=== PATIENT | female | born 1940 | race Caucasian/White ===

== ENCOUNTER 2016-03-09 19:41 | Inpatient (IN) | payer MEDICARE, MEDICAID ==
[~2016-03-09] VITALS: Ht 163 cm; Wt 52.8 kg
--- NOTE | ~2016-03-09 | CON ---
[place], [place] REPORT OF CONSULTATION NAME: CHESTER FARNSWORTH UNIT #: [id number] ROOM: 405 DOCTOR: SHRUTHI CALVIN MD BIRTHDATE: [birth year] DOS: 03/11/2016 [place], [place] REPORT OF CONSULTATION NAME: CHESTER FARNSWORTH UNIT #: [id number] ROOM: 405 DOCTOR: SHRUTHI CALVIN MD BIRTHDATE: [birth year] REQUESTING PHYSICIAN: Hospitalist services, Dr. Eliot Hanna. REASON FOR CONSULTATION: Assess the patient for COPD. HISTORY OF PRESENT ILLNESS: This is a 75-year-old white female who has been known to me with past history of COPD and other problem. The patient has been admitted to the hospital under care of Dr. Jacques Mccabe. She has been reported with symptoms of having increased coughing with shortness of breath, sent to the hospital from the snf. Chest x-ray was described to be abnormal. She has been currently treated for possibility of acute pneumonia with exacerbation of COPD. She denies symptoms of shortness of breath, coughing, chest pain, sputum expectoration or hemoptysis. The patient has been known with past history of dementia, unable to give me accurate history account. REVIEW OF SYSTEMS: Could not be completed since the patient was denying all symptoms and could not be relied upon. All the other history has been obtained from the previous known history for this patient in the past. PAST MEDICAL HISTORY: 1. History of chronic hypoxic respiratory failure. 2. History of partial complex seizures. 3. Mediastinal lymphadenopathy. 4. Previous history of pneumonia. 5. Atrial fibrillation, on anticoagulation. 6. History of chronic diarrhea. 7. History of dementia. 8. Raynaud's disease. SOCIAL HISTORY: The patient is , currently a resident of [facility], has 3 children. She does not have any history of alcohol or illicit drug use. Tobacco use noted since teenager up to 2 packs of cigarettes per day for many years that was discontinued about 5-6 years ago. There was no history of alcohol or illicit drug use. SURGICAL HISTORY: 1. ORIF of the right hip fracture for the patient in 2009. 2. Left carotid endarterectomy. DRUG ALLERGIES: The patient was no known drug allergies. MEDICATIONS: Current administered medications noted use of Lipitor, Dulera, potassium chloride, vitamin D, Lasix, metoprolol tartrate, diltiazem, IV Solu-Medrol, Protonix, DuoNeb, Rocephin intravenously, and IV Zithromax. PHYSICAL EXAMINATION: GENERAL: This is a 75-year-old white female noted comfortable sitting on the bed. Height of 5 feet 4 inches, weight 116 pounds, BMI 19.8. VITAL SIGNS: Shows normal temperature, respiratory recorded as 19-23, heart [place], [place] REPORT OF CONSULTATION NAME: CHESTER FARNSWORTH UNIT #: [id number] ROOM: 405 DOCTOR: SHRUTHI CALVIN MD BIRTHDATE: [birth year] rate of 93-60, blood pressure 116/48-113/57. Pulse oxygen saturation of the patient noted on 3 L nasal cannula 95% saturation. HEENT: Head is atraumatic. Eyes nonicterus. The neck was supple. Oral mucosa was moist. CARDIOVASCULAR: S1, S2 audible. LUNGS: Noted with moderate decreased breaths without any wheezing or crackles. ABDOMEN: Soft, flat, nontender. EXTREMITIES: Show no edema, clubbing, cyanosis. CENTRAL NERVOUS SYSTEM: Cranial nerves II-XII were noted intact. There were no focal deficits. MUSCULOSKELETAL: No deformities. SKIN: No lesions or rashes. LABORATORY DATA: CBC on 03/09/2016, patient was essentially noted as normal CBC. PT/INR on 03/09/2016 was 2.3, which is therapeutic. CMP of patient on 03/09/2016, BUN 26, creatinine 1.16, glucose 164, potassium 3.2. CK-MB, troponin of the patient which were done on 16 and 17 of this month were normal. CBC repeated again on yesterday was normal. PT/INR yesterday was noted to be 2.3 therapeutic as well. The BMP of the patient showed normal BUN and creatinine yesterday as well with the potassium level noted corrected as 4.0. The chest x-ray of the patient that was done on 03/09/2016, the patient does not show any acute abnormalities. The chest x-ray shows evidence of right upper lobe nodule as well. CT scan of the chest of the patient shows irregular spiculated nodule 1.6 x 1.4 x 1.4 cm in dimension. Another small nodule for the patient noted as 6 mm in the right upper lobe, a 5-mm nodule noted in the superior segment of the right lower lobe. A 5-mm additional nodule noted in the right upper lung as well. A 3-mm pleural based nodule noted in the right lower lobe as well. Basilar area of atelectasis was also noted with evidence of granuloma in the lungs. There was no significant lymphadenopathy was seen. IMPRESSION: 1. The patient who has been currently admitted to the hospital for acute exacerbation of COPD with history of chronic hypoxic respiratory failure. 2. Incidental findings, the patient was noted as spiculated nodule in the right upper lung, 1.6 cm in size and other smaller nodules in the right lung as well. The nodule in the right upper lung is noted highly suspicious possibility of primary lung malignancy and/or metastatic disease would be considered from any cancer in the body. 3. History of chronic dementia as well. 4. Granuloma for the patient was also noted in the lungs on the right side for the patient, which is a benign finding with small area of atelectasis in the left lower lobe. 5. History of chronic nicotine use for this patient was also noted with half a pack of cigarettes per day up to 2 packs of cigarettes per day rather for this patient until 5-6 years ago. PLAN OF TREATMENT: Agree with use of corticosteroids, bronchodilators, oxygen supplementation. Sputum for Gram stain and culture. Further workup for the patient for current suspected malignancy to be done as an outpatient upon discharge with a PET scan and/or biopsy for this patient of the pulmonary nodule [place], [place] REPORT OF CONSULTATION NAME: CHESTER FARNSWORTH UNIT #: [id number] ROOM: 405 DOCTOR[facility] [birth year] in the right upper lung, especially needs to be done. I also discussed the findings with the patient's family members and the patient. Continue the other previous treatment plan of management. Gradual reduction of steroids based on improvement of symptom. Usual care. Other supportive plan and management and other care. Thanks for allowing me to participate in care of this patient. SHRUTHI SHAHID MD CM:CONSTR:REPORT OF CONSULTATION 1041 04/15/16 0924 interface
[~2016-03-09 19:41] MED LIST: ADVAIR DISKUS 21 DSK INH; APAP PO; BREO ELLIPTA 11 EACH IH; CELEXA10 MG PO; COUMADIN0.5 MG PO; COUMADIN1 M1 PO; COUMADIN2 M1 PO; COUMADIN2 MG PO; COUMADIN3 M1 PO; D-1000 185 MG-11 TAB PO; DILTIAZEM 24HR120 MG PO; DILTIAZEM ER240 M1 PO; DOXYCYCLINE100 M3 PO; DUONEB 3 MG/3 ML3 M1 INH; DUONEB 3 MG/3 ML3 M1 NEB; HYDROCODON PO; IMODIUM A-D2 M2 PO; K-TAB10 MEQ PO; LASIX40 MG PO; LEVAQUIN750 M1 PO; LEVOFLOXACIN500 MG PO; LOPRESSOR50 M1 PO; METOPROLOL SUCC50 M1 PO; OXYGEN NAS; PREDNISONE10 MG PO; SYMBICORT1 AE1 INH; TYLENOL325 M1 PO; TYLENOL650 MG R; VALIUM10 MG PO; VICODIN 5-3001 EACH PO; VITAMIN D31000 IU PO; WARFARIN SODIUM1 MG PO; WARFARIN2 MG PO; ZOCOR40 MG PO
[2016-03-09 20:11] VITALS: BP 120/42
[2016-03-09 20:15] LABS: BASO % 0.2 % (0.0-1.0); EOS % 0.2 % (1.0-4.0); HEMATOCRIT 42.6 % (37.0-47.0); HEMOGLOBIN 13.4 g/dl (12.0-16.0); IG # 0.1 10*3/uL (0.0-0.1); LYMPH # 0.8 10*3/uL (1.3-4.4); LYMPH % 8.4 % (27.0-41.0); MEAN CELL VOLUME 89.9 fl (81.0-99.0); MEAN CORPUSCULAR HGB 28.3 pg (27.0-31.0); MEAN CORPUSCULAR HGB CONC 31.5 g/dl (33.0-37.0); MEAN PLATELET VOLUME 9.9 fl (9.6-12.3); MONO # 1.2 10*3/uL (0.1-1.0); MONO % 13.6 % (3.0-9.0); NEUT % 76.6 % (47.0-73.0); PLATELET COUNT AUTOMATED 270 10*3/uL (130-400); RED BLOOD COUNT 4.74 10*6/uL (4.10-5.10); RED CELL DISTRI WIDTH 15.9 % (0-14.5); WHITE BLOOD COUNT 9.1 10*3/uL (4.8-10.8)
[2016-03-09 20:30] VITALS: BP 115/50
[2016-03-09 20:31] LABS: INTERNATIONAL NORM RATIO 2.3 (2.0-3.5)
[2016-03-09 20:40] LABS: ALBUMIN 3.2 gm/dl (3.1-4.5); ALKALINE PHOSPHATASE 196 U/L (45-117); BILIRUBIN, TOTAL 0.2 mg/dl (0.2-1.0); BUN 26 mg/dl (7-24); C-REACTIVE PROTEIN 1.38 MG/DL (0-0.3); CARBON DIOXIDE 27 mmol/L (21-32); CHLORIDE 104 mmol/L (98-107); EST GLOM FILT AFRICAN AMERICAN 56 ml/min; GLUCOSE 164 mg/dL (65-99); POTASSIUM 3.2 mmol/L (3.5-5.1); SGOT/AST 31 IU/L (3-35); SGPT/ALT 40 U/L (12-78); SODIUM 143 mmol/L (136-145); TOTAL PROTEIN 7.4 gm/dL (6.4-8.2)
[2016-03-09 20:42] LABS: TROPONIN I < 0.015 ng/ml (<0.5)
[2016-03-09 21:07] VITALS: BP 115/49
[2016-03-09] MEDS ORDERED: COUMADIN2 M1 PO (21:29)
[2016-03-09] MEDS ORDERED: BREO ELLIPTA 11 EACH IH (21:31)
[2016-03-09] MEDS ORDERED: HYDROCODONE/ACE1 T14 PO (21:32)
[2016-03-09] MEDS ORDERED: CRESTOR20 M1 PO (21:33)
[2016-03-09] MEDS ORDERED: VITAMIN D31000 IU PO (21:33)
[2016-03-10 00:45] VITALS: BP 110/53
[2016-03-10 00:51] LABS: CKMB 1.4 ng/ml (0.5-3.6); CPK 66 U/L (26-192); TROPONIN I < 0.015 ng/ml (<0.5)
[2016-03-10 06:12] LABS: CKMB 1.4 ng/ml (0.5-3.6); CPK 58 U/L (26-192)
[2016-03-10 06:14] LABS: TROPONIN I < 0.015 ng/ml (<0.5)
[2016-03-10 06:20] LABS: BASO % 0.2 % (0.0-1.0); HEMATOCRIT 41.9 % (37.0-47.0); HEMOGLOBIN 13.2 g/dl (12.0-16.0); IG # 0.1 10*3/uL (0.0-0.1); LYMPH # 0.4 10*3/uL (1.3-4.4); LYMPH % 6.9 % (27.0-41.0); MEAN CELL VOLUME 89.9 fl (81.0-99.0); MEAN CORPUSCULAR HGB 28.3 pg (27.0-31.0); MEAN CORPUSCULAR HGB CONC 31.5 g/dl (33.0-37.0); MEAN PLATELET VOLUME 10.7 fl (9.6-12.3); MONO # 0.1 10*3/uL (0.1-1.0); MONO % 1.8 % (3.0-9.0); NEUT # 5.6 10*3/uL (2.3-7.9); PLATELET COUNT AUTOMATED 238 10*3/uL (130-400); RED BLOOD COUNT 4.66 10*6/uL (4.10-5.10); RED CELL DISTRI WIDTH 15.9 % (0-14.5); WHITE BLOOD COUNT 6.2 10*3/uL (4.8-10.8)
[2016-03-10 06:33] LABS: INTERNATIONAL NORM RATIO 2.3 (2.0-3.5); PROTHROMBIN TIME 25.4 SECONDS (9.0-12.4)
[2016-03-10 06:37] LABS: ALBUMIN 2.9 gm/dl (3.1-4.5); ALKALINE PHOSPHATASE 190 U/L (45-117); BILIRUBIN, TOTAL 0.1 mg/dl (0.2-1.0); BUN 20 mg/dl (7-24); CARBON DIOXIDE 28 mmol/L (21-32); CHLORIDE 109 mmol/L (98-107); EST GLOM FILT AFRICAN AMERICAN > 60 ml/min; FREE T4 0.91 ng/dl (0.76-1.46); GLUCOSE 165 mg/dL (65-99); MAGNESIUM 1.8 mg/dL (1.5-2.1); PHOSPHOROUS 3.4 mg/dL (2.5-4.9); SGOT/AST 37 IU/L (3-35); SGPT/ALT 39 U/L (12-78); SODIUM 143 mmol/L (136-145); THYROID STIM HORMONE (HS) 0.977 uIU/ml (0.358-4.75); TOTAL PROTEIN 6.8 gm/dL (6.4-8.2)
[2016-03-10 06:52] LABS: VITAMIN D, 25-HYDROXY 30.3 ng/mL (30-100)
[2016-03-10 06:53] LABS: FOLIC ACID 18.07 ng/mL (>5.38)
[2016-03-10 06:58] LABS: HEMOGLOBIN A1c 6.4 % (4.8-5.6)
[2016-03-10 08:00] VITALS: BP 112/51
[2016-03-10 12:00] VITALS: BP 103/88
[2016-03-10 12:24] LABS: CKMB 1.8 ng/ml (0.5-3.6); CPK 67 U/L (26-192); TROPONIN I < 0.015 ng/ml (<0.5)
[2016-03-10 16:00] VITALS: BP 109/53
[2016-03-10 20:00] VITALS: BP 104/51
[2016-03-11] VITALS: BP 113/57
[2016-03-11 06:39] LABS: BASO % 0.1 % (0.0-1.0); HEMATOCRIT 39.2 % (37.0-47.0); HEMOGLOBIN 12.2 g/dl (12.0-16.0); IG # 0.1 10*3/uL (0.0-0.1); LYMPH # 0.6 10*3/uL (1.3-4.4); LYMPH % 4.3 % (27.0-41.0); MEAN CELL VOLUME 91.6 fl (81.0-99.0); MEAN CORPUSCULAR HGB 28.5 pg (27.0-31.0); MEAN CORPUSCULAR HGB CONC 31.1 g/dl (33.0-37.0); MEAN PLATELET VOLUME 10.7 fl (9.6-12.3); MONO # 0.8 10*3/uL (0.1-1.0); MONO % 5.7 % (3.0-9.0); NEUT # 11.9 10*3/uL (2.3-7.9); NEUT % 89.3 % (47.0-73.0); PLATELET COUNT AUTOMATED 255 10*3/uL (130-400); RED BLOOD COUNT 4.28 10*6/uL (4.10-5.10); WHITE BLOOD COUNT 13.4 10*3/uL (4.8-10.8)
[2016-03-11 07:00] LABS: ALBUMIN 2.9 gm/dl (3.1-4.5); ALKALINE PHOSPHATASE 158 U/L (45-117); BILIRUBIN, TOTAL 0.2 mg/dl (0.2-1.0); BUN 22 mg/dl (7-24); CARBON DIOXIDE 26 mmol/L (21-32); CHLORIDE 109 mmol/L (98-107); EST GLOM FILT AFRICAN AMERICAN > 60 ml/min; GLUCOSE 180 mg/dL (65-99); POTASSIUM 3.4 mmol/L (3.5-5.1); SGOT/AST 20 IU/L (3-35); SGPT/ALT 29 U/L (12-78); SODIUM 146 mmol/L (136-145); TOTAL PROTEIN 6.7 gm/dL (6.4-8.2)
[2016-03-11 08:00] VITALS: BP 116/48
[2016-03-11 11:19] LABS: BILIRUBIN NEGATIVE (NEGATIVE); BLOOD TRACE-LYSED (NEGATIVE); COLOR YELLOW (YELLOW); GLUCOSE 3+ (NEGATIVE); KETONE NEGATIVE (NEGATIVE); LEUKO ESTERASE TRACE (NEGATIVE); NITRITE NEGATIVE (NEGATIVE); PH 5.5 (5.0-9.0); PROTEIN NEGATIVE (NEGATIVE); UROBILINOGEN 0.2 E.U./dl (0.2-1.0)
[2016-03-11 11:31] LABS: BACTERIA 1+; CLARITY SL CLOUDY (CLEAR); EPITHELIAL CELLS 0-2; URINE REFLEX COMMENT YES (NO); WBC 41-50 wbc/hpf (0-5)
[2016-03-11 11:59] VITALS: BP 125/56
[2016-03-11] MEDS ORDERED: PREDNISONE10 MG PO (15:16)
[2016-03-11] MEDS ORDERED: LEVAQUIN500 M2 PO (15:16)
[2016-03-11 16:00] VITALS: BP 139/70
== END 2016-03-11 17:31 | DRG 193 ==
LOC: ED 19:41 → 4E 21:18 → EDHOLD 21:18 → 4E 21:39
PROVIDERS: Emergency Medicine Emergency Medical Services; Family Medicine Adult Medicine; Internal Medicine
DX: J18.9 Pneumonia, unspecified organism (principal); N17.0 Acute kidney failure with tubular necrosis; J96.11 Chronic respiratory failure with hypoxia; E44.0 Moderate protein-calorie malnutrition; I13.0 Hypertensive heart and chronic kidney disease with heart failure and stage 1 through stage 4 chronic kidney disease, or unspecified chronic kidney disease; E87.0 Hyperosmolality and hypernatremia; I95.9 Hypotension, unspecified; I50.32 Chronic diastolic (congestive) heart failure; J44.0 Chronic obstructive pulmonary disease with (acute) lower respiratory infection; F33.9 Major depressive disorder, recurrent, unspecified; Z68.1 Body mass index [BMI] 19.9 or less, adult; J44.1 Chronic obstructive pulmonary disease with (acute) exacerbation; E87.6 Hypokalemia; R73.9 Hyperglycemia, unspecified; I73.9 Peripheral vascular disease, unspecified; J84.10 Pulmonary fibrosis, unspecified; G30.9 Alzheimer's disease, unspecified; I48.0 Paroxysmal atrial fibrillation; I25.10 Atherosclerotic heart disease of native coronary artery without angina pectoris; I73.00 Raynaud's syndrome without gangrene; N18.3 Chronic kidney disease, stage 3 (moderate); D72.829 Elevated white blood cell count, unspecified; Z79.01 Long term (current) use of anticoagulants; Z99.81 Dependence on supplemental oxygen; Z86.73 Personal history of transient ischemic attack (TIA), and cerebral infarction without residual deficits; Z98.890 Other specified postprocedural states; Z87.891 Personal history of nicotine dependence; Z80.1 Family history of malignant neoplasm of trachea, bronchus and lung; Z79.1 Long term (current) use of non-steroidal anti-inflammatories (NSAID); Z79.899 Other long term (current) drug therapy

== ENCOUNTER 2016-06-21 16:16 | Inpatient (IN) | payer MEDICARE, MEDICAID ==
[~2016-06-21] VITALS: Ht 157.4 cm; Wt 52.9 kg
--- NOTE | ~2016-06-21 | PR ---
[place], [place] PROGRESS NOTE NAME: CHESTER FARNSWORTH UNIT #: [id number] ROOM: 403 DOCTOR: SHRUTHI CALVIN MD BIRTHDATE: [birth year] DOS: 06/24/2016 PULMONARY FOLLOWUP NOTE SUBJECTIVE: The patient seen and examined on 06/24/2016. She has been noted comfortable, noted with confusion, has been known with history of dementia. Keep stating that why she is here and she need to go home. OBJECTIVE: VITAL SIGNS: For the patient, which has been recorded shows the temperature noted normal, respiratory rate of 18, heart rate 73, blood pressure 150/65. Pulse oxygen saturation on 2 liters nasal cannula 100% saturation recorded. HEENT: Examination shows no acute change. NECK: Supple. CARDIOVASCULAR SYSTEM: S1, S2 audible. LUNGS: The patient was noted without any wheezing or crackles. ABDOMEN: Soft, nontender. LABORATORY DATA: INR today noted 3.6, which is mildly above the therapeutic range. IMPRESSION: 1. The patient with right upper lung pulmonary nodule for the patient. 2. Acute exacerbation of chronic obstructive pulmonary disease as well. 3. Past history of nicotine dependence. 4. Resolving acute kidney injury. 5. Acute tracheobronchitis with exacerbation of chronic obstructive pulmonary disease as well as acute on chronic hypoxic respiratory failure. 6. History of chronic dementia. PLAN OF TREATMENT: Repeat another CT scan of the chest for assessment of the current nodule progression. In the meantime, continue the patient on current plan and management at this time without any changes. Usual care. Supportive therapy, plan of care and medical management. [place], [place] PROGRESS NOTE NAME: CHESTER FARNSWORTH UNIT #: [id number] ROOM: 403 DOCTOR: SHRUTHI CALVIN MD BIRTHDATE: [birth year] SHRUTHI SHAHID MD CM:PNTRANS 1225 [id number] SHRUTHI RODRIGUEZ MD 06/25/16 0302 interface
--- NOTE | ~2016-06-21 | CON ---
[place], [place] REPORT OF CONSULTATION NAME: CHESTER FARNSWORTH UNIT #: [id number] ROOM: 404 DOCTOR: KLEBER RODRIGUEZ MD,SHRUTHI BIRTHDATE: [birth year] DOS: 06/23/2016 PULMONARY CONSULTATION REASON FOR CONSULTATION: The patient had symptoms of shortness of breath. HISTORY OF PRESENT ILLNESS: This 75-year-old white female who has been known to me from the past as well. The patient presented to the Emergency and the patient has been noted significant shortness of breath. Recently she was noted with symptoms of having pain, which was described all over the body as well with shortness of breath. The shortness of breath has been noted usually with exertion and sometimes ____. She has been noted with symptoms of coughing, which were noted nonproductive as well. Denies symptoms of chest pain or any abdominal pain. The patient arrived to the Emergency Room, she was noted with oxygen saturation only 83% rathr in the Emergency Room and 71% was noted in the home setting. She was started on oxygen supplementation nasal cannula. She tried to complain of symptoms of wheezing at times as well. There were no symptoms of chest pain or hemoptysis. REVIEW OF SYSTEMS: CONSTITUTIONAL SYMPTOMS: Fatigue and tiredness were described without symptoms of fever or chills. EYES: Denies any burning, redness, or tenderness. EARS, NOSE, THROAT SYMPTOMS: No sore throat, hoarseness, otalgia, postnasal drainage. CARDIOVASCULAR: Denies anginal pain, edema of the lower extremities. GASTROINTESTINAL: Denies dysphagia, nausea, vomiting, diarrhea, abdominal pain, hematemesis, and melena. SKIN: No lesions or rashes. MUSCULOSKELETAL: No deformities. CENTRAL NERVOUS SYSTEM: Denies dizziness, headache or diplopia. The review of systems would be considered limited because the patient has history of known dementia and history may not be very accurate. PAST MEDICAL HISTORY: Noted: 1. Chronic hypoxic respiratory failure. 2. History of partial complex seizures. 3. Centrilobular emphysema. 4. Pneumonia. 5. Atrial fibrillation with anticoagulation. 6. Chronic intermittent diarrhea. 7. Raynaud's disease. SOCIAL HISTORY: The patient is . She is a resident of ____ history in the past. There was no history of alcohol use or illicit drug use was known. Tobacco use noted since teenager, 2 packs of cigarettes per day for several years, which were discontinued approximately 5-6 years ago. There was no history of tobacco use or any alcohol use. PAST SURGICAL HISTORY: [place], [place] REPORT OF CONSULTATION NAME: CHESTER FARNSWORTH UNIT #: [id number] ROOM: 404 DOCTOR: KLEBER RODRIGUEZ MD,SHRUTHI BIRTHDATE: [birth year] 1. ORIF for this patient. 2. Left carotid endarterectomy. FAMILY HISTORY: The patient was unknown. MEDICATIONS: The current administered medication noted use of Coumadin, vitamin D, Cardizem, loratadine, metoprolol tartrate, Solu-Medrol 40 mg IV b.i.d., Dulera, Lipitor, DuoNeb, Levaquin, and other p.r.n. medications. DRUG ALLERGIES: The patient was noted as no known drug allergies. PHYSICAL EXAMINATION: GENERAL: This is a 75-year-old white female currently noted sitting comfortably for the patient resting on her bed. VITAL SIGNS: The height for the patient recorded with height of 5 feet 2 inches, weight of 121 pounds, BMI of 20.7. The vital signs show a normal temperature, respiratory rate 18-20, heart rate of 77-68, and blood pressure 142/62-135/65. Intake for the patient is 3000 mL, output were not documented. Pulse oxygen saturation on Venturi mask was 99%, currently on 3 L nasal cannula 97% saturation recorded. HEENT: Head was atraumatic. Eyes nonicterus. NECK: Supple. CARDIOVASCULAR: S1, S2 audible. LUNGS: The patient was noted without any crackles. Expiratory wheezing noted in the lungs bilaterally. ABDOMEN: Flat, soft, nontender. EXTREMITIES: No edema, clubbing, cyanosis. CENTRAL NERVOUS SYSTEM: Cranial nerves 2-12 intact. No focal deficit. MUSCULOSKELETAL: No deformities. SKIN: Showed no lesions or rashes. LABORATORY DATA: Arterial blood gas on 4 liters, pH is 7.40, pCO2 of 44, pO2 of 45.3 on admission on 06/21/2016. ____ 430, BUN 38, creatinine 1.54. Glucose 115. Remaining electrolytes were normal. CBC on 06/21/2016 on admission, WBC count 17.8, hemoglobin, hematocrit and platelet count was normal. The CMP for the patient that was done for this patient on 06/22/2016, BUN 26, creatinine was normal, glucose 169. CBC of the patient on 06/22/2016 noted as essentially normal CBC except differential 90% segmented neutrophils were noted. One view chest x-ray that was done on admission was noted as; chest x-ray does not show any evidence of pulmonary infiltration. The nodular density at the right upper lung persisted, which was also seen on the previous CT scan of the chest in February of 2016 at that time. IMPRESSION: 1. The patient who has been currently admitted to the hospital noted with acute on chronic hypoxic respiratory failure as a result of acute exacerbation of chronic obstructive pulmonary disease and acute tracheobronchitis. 2. Acute kidney injury for the patient noted most likely intravascular volume depletion for this patient volume contraction has resolved after the IV hydration from admission as well. [place], [place] REPORT OF CONSULTATION NAME: CHESTER FARNSWORTH UNIT #: [id number] ROOM: [facility] DOCTOR: KLEBER RODRIGUEZ MDSHRUTHI BIRTHDATE: [birth year] 3. Past history of nicotine use. 4. Right upper lung nodule concerning for possibility of malignancy. The CT scan of the 02/2016 was noted again. At that time during hospitalization. I have seen the patient in consultation. The findings were discussed with the patient family members. The patient further workup to be conducted including a PET scan, CT-guided needle aspiration biopsy for ruling out malignancy. However, the patient has never been seen in my office and I am not sure any further assessment was done by another physician at that time. PLAN OF TREATMENT: Continue IV Solu-Medrol, bronchodilators, antibiotics, and other treatment including anticoagulation. Monitor PT/INR while the patient is on anticoagulation with Coumadin. The last INR for patient on 06/22/2016 was noted 2.6, which is therapeutic. Enquired about the previous workup conducted were not done for the right upper lung pulmonary nodule. The workup is not complete. The family will be wishing an interesting further workup. The patient certainly does need to establish appointment office as previously recommended to complete that workup. ____ of malignancy cannot be completely excluded. In the meantime, continue other supportive therapy, plan and management, progress as well. Further changes in the plan of treatment will be done based on progression of the illness. SHRUTHI SHAHID MD CM:CONSTR:REPORT OF CONSULTATION 1231 06/24/16 0754 interface
[~2016-06-21 16:16] MED LIST changes: +CRESTOR20 M1 PO; +HYDROCODONE/ACE1 T14 PO; +LEVAQUIN500 M2 PO
[2016-06-21 16:31] VITALS: BP 124/68
[2016-06-21 16:36] LABS: ABG BASE EXCESS 2.5 mmol/L (-2.0-2.0); ABG CO2 CONTENT 28.6 mmol/L (23-27); ABG HCO3 27.3 mmol/l (22-26); ABG TEMPERATURE 98.1 F (98.0-99.0); ARTERIAL BLOOD GAS PH 7.407 (7.35-7.45); ARTERIAL BLOOD GAS PO2 45.3 mmHg (80-90)
[2016-06-21 16:48] LABS: HEMATOCRIT 46.3 % (37.0-47.0); HEMOGLOBIN 14.4 g/dl (12.0-16.0); MEAN CELL VOLUME 94.7 fl (81.0-99.0); MEAN CORPUSCULAR HGB 29.4 pg (27.0-31.0); MEAN CORPUSCULAR HGB CONC 31.1 g/dl (33.0-37.0); MEAN PLATELET VOLUME 10.4 fl (9.6-12.3); PLATELET COUNT AUTOMATED 323 10*3/uL (130-400); RED BLOOD COUNT 4.89 10*6/uL (4.10-5.10); RED CELL DISTRI WIDTH 14.4 % (0-14.5); WHITE BLOOD COUNT 17.2 10*3/uL (4.8-10.8)
[2016-06-21] MEDS ORDERED: CLARITIN10 MG PO (16:48)
[2016-06-21] MEDS ORDERED: BREO ELLIPTA 11 EACH IH (16:48)
[2016-06-21] MEDS ORDERED: COUMADIN1 M1 PO (16:49)
[2016-06-21] MEDS ORDERED: COUMADIN2 MG PO (16:50)
[2016-06-21] MEDS ORDERED: LASIX40 MG PO (16:51)
[2016-06-21] MEDS ORDERED: K-TAB10 MEQ PO (16:51)
[2016-06-21] MEDS ORDERED: DILTIAZEM ER120 MG PO (16:51)
[2016-06-21] MEDS ORDERED: HYDROCODONE BIT1 T11 PO (16:52)
[2016-06-21] MEDS ORDERED: VITAMIN D31000 IU PO (16:52)
[2016-06-21] MEDS ORDERED: CRESTOR20 M1 PO (16:52)
[2016-06-21] MEDS ORDERED: LOPRESSOR50 M1 PO (16:53)
[2016-06-21] MEDS ORDERED: DUONEB 3 MG/3 ML3 M1 INH (16:53)
[2016-06-21] MEDS ORDERED: TYLENOL325 M1 PO (16:54)
[2016-06-21 17:00] LABS: POTASSIUM 3.9 mmol/L (3.5-5.1)
[2016-06-21 17:13] LABS: BASOPHIL # 0.2 10*3/uL (0-0.1); BASOPHILS 1 % (0-1); LYMPHOCYTE # 1.7 10*3/uL (1.3-4.4); NEUTROPHIL # 14.3 10*3/uL (2.3-7.9); NEUTROPHILS 83 % (47-73); TOTAL CELLS COUNTED 100 #CELLS
[2016-06-21 17:14] LABS: PLATELET SUFFICIENCY NORMAL (NORMAL)
[2016-06-21 17:55] VITALS: BP 101/67
[2016-06-21 20:00] VITALS: BP 144/59
[2016-06-22] VITALS: BP 118/50
[2016-06-22 06:34] LABS: HEMATOCRIT 44.4 % (37.0-47.0); HEMOGLOBIN 13.8 g/dl (12.0-16.0); MEAN CELL VOLUME 94.9 fl (81.0-99.0); MEAN CORPUSCULAR HGB 29.5 pg (27.0-31.0); MEAN CORPUSCULAR HGB CONC 31.1 g/dl (33.0-37.0); MEAN PLATELET VOLUME 10.6 fl (9.6-12.3); PLATELET COUNT AUTOMATED 277 10*3/uL (130-400); RED BLOOD COUNT 4.68 10*6/uL (4.10-5.10); RED CELL DISTRI WIDTH 14.3 % (0-14.5)
[2016-06-22 06:53] LABS: ALBUMIN 3.1 gm/dl (3.1-4.5); ALKALINE PHOSPHATASE 185 U/L (45-117); BILIRUBIN, TOTAL 0.3 mg/dl (0.2-1.0); CARBON DIOXIDE 30 mmol/L (21-32); CHLORIDE 107 mmol/L (98-107); CHOLESTEROL 134 mg/dL (<200); EST GLOM FILT AFRICAN AMERICAN > 60 ml/min; GLUCOSE 169 mg/dL (65-99); HDL CHOLESTEROL 65 mg/dl (40-60); LDL CHOLESTEROL 45 mg/dL (9-159); MAGNESIUM 1.8 mg/dL (1.5-2.1); POTASSIUM 3.8 mmol/L (3.5-5.1); SGOT/AST 21 IU/L (3-35); SGPT/ALT 33 U/L (12-78); SODIUM 144 mmol/L (136-145); TOTAL PROTEIN 7.2 gm/dL (6.4-8.2); TRIGLYCERIDES 121 mg/dl (<150); VLDL CHOLESTEROL 24 mg/dL (6-40)
[2016-06-22 06:57] LABS: INTERNATIONAL NORM RATIO 2.6 (2.0-3.5); PROTHROMBIN TIME 28.9 SECONDS (9.0-12.4)
[2016-06-22 06:59] LABS: BUN 26 mg/dl (7-24); FREE T4 0.65 ng/dl (0.76-1.46)
[2016-06-22 07:09] LABS: LYMPHOCYTE # 0.7 10*3/uL (1.3-4.4); METAMYELOCYTES 1 % (0-0); MONOCYTE # 0.2 10*3/uL (0.1-1.0); NEUTROPHILS 90 % (47-73); TOTAL CELLS COUNTED 100 #CELLS
[2016-06-22 07:10] LABS: PLATELET SUFFICIENCY NORMAL (NORMAL)
[2016-06-22 08:00] VITALS: BP 139/74
[2016-06-22 10:38] LABS: FOLIC ACID 9.67 ng/mL (>5.38); VITAMIN D, 25-HYDROXY 25.1 ng/mL (30-100)
[2016-06-22 12:00] VITALS: BP 141/64
[2016-06-22 16:00] VITALS: BP 136/68
[2016-06-22 20:00] VITALS: BP 135/65
[2016-06-23] VITALS: BP 120/71
[2016-06-23 08:00] VITALS: BP 143/62
[2016-06-23 12:00] VITALS: BP 138/72
[2016-06-23 16:00] VITALS: BP 155/68
[2016-06-23 20:03] VITALS: BP 105/67
[2016-06-24] VITALS: BP 104/64
[2016-06-24 05:50] LABS: INTERNATIONAL NORM RATIO 3.6 (2.0-3.5); PROTHROMBIN TIME 40.8 SECONDS (9.0-12.4)
[2016-06-24 08:00] VITALS: BP 158/65
[2016-06-24] MEDS ORDERED: D-1000 185 MG-11 TAB PO (11:20)
[2016-06-24 12:00] VITALS: BP 164/83
[2016-06-24 16:00] VITALS: BP 128/68
== END 2016-06-24 17:42 | disposition home or self-care (01) | DRG 682 ==
LOC: ED 16:16 → EDHOLD 17:21 → 4E 17:21
PROVIDERS: Emergency Medicine; Internal Medicine; Internal Medicine Hospice and Palliative Medicine
DX: N17.9 Acute kidney failure, unspecified (principal); J96.21 Acute and chronic respiratory failure with hypoxia; F03.90 Unspecified dementia, unspecified severity, without behavioral disturbance, psychotic disturbance, mood disturbance, and anxiety; I13.0 Hypertensive heart and chronic kidney disease with heart failure and stage 1 through stage 4 chronic kidney disease, or unspecified chronic kidney disease; J44.0 Chronic obstructive pulmonary disease with (acute) lower respiratory infection; J44.1 Chronic obstructive pulmonary disease with (acute) exacerbation; I50.9 Heart failure, unspecified; I48.91 Unspecified atrial fibrillation; I73.9 Peripheral vascular disease, unspecified; N18.3 Chronic kidney disease, stage 3 (moderate); R91.1 Solitary pulmonary nodule; D64.9 Anemia, unspecified; R91.8 Other nonspecific abnormal finding of lung field; I25.10 Atherosclerotic heart disease of native coronary artery without angina pectoris; Z99.81 Dependence on supplemental oxygen; Z87.891 Personal history of nicotine dependence; Z86.73 Personal history of transient ischemic attack (TIA), and cerebral infarction without residual deficits; Z80.1 Family history of malignant neoplasm of trachea, bronchus and lung; Z82.49 Family history of ischemic heart disease and other diseases of the circulatory system

== ENCOUNTER 2016-06-27 12:43 | Inpatient (IN) | payer MEDICARE, MEDICAID ==
[~2016-06-27] VITALS: Ht 162.6 cm; Wt 50.9 kg
--- NOTE | ~2016-06-27 | PR ---
[place], [place] PROGRESS NOTE NAME: CHESTER FARNSWORTH UNIT #: [id number] ROOM: 427 DOCTOR: KLEBER RODRIGUEZ MD,SHRUTHI BIRTHDATE: [birth year] DOS: 06/28/2016 PULMONARY PROGRESS NOTE SUBJECTIVE: She has been comfortably resting on the bed, has been noted with dementia, does not complain of any acute symptoms. She has not been noted with excessive coughing at the time of the assessment. OBJECTIVE: VITAL SIGNS: Normal temperature, respiratory rate 20, heart rate 81, blood pressure 152/80. HEENT: Examination shows head was atraumatic. Eyes nonicterus. NECK: Supple. CARDIOVASCULAR SYSTEM: S1, S2 is audible. LUNGS: The patient was noted without any wheezing or crackles at the present time. ABDOMEN: Soft, nontender. IMPRESSION: 1. Resolving acute exacerbation of chronic obstructive pulmonary disease and acute tracheobronchitis with current plan of treatment. 2. Right upper lung pulmonary nodule. The patient is suspected slow growing malignancy for the patient required further outpatient assessment. PLAN OF TREATMENT: No changes in the plan of management at this time. Continue corticosteroids and bronchodilators treatment plan of therapy. Usual care. SHRUTHI SHAHID MD CM:PNTRANS 1313 19 SHRUTHI RODRIGUEZ MD 06/28/16 222 interface
--- NOTE | ~2016-06-27 | CON ---
[place], [place] REPORT OF CONSULTATION NAME: CHESTER FARNSWORTH UNIT #: [id number] ROOM: 427 DOCTOR: KLEBER RODRIGUEZ MD,SHRUTHI BIRTHDATE: [birth year] DOS: 06/27/2016 PULMONARY CONSULTATION EVALUATION AND MANAGEMENT REASON FOR CONSULTATION: For assessment of abnormal respiratory symptoms, possibly due to pneumonia with exacerbation of COPD. HISTORY OF PRESENT ILLNESS: A 75-year-old white female known to me very well with the previous hospitalization, the patient was discharged home for the patient after medical management of acute exacerbation of COPD, acute tracheobronchitis of the patient on 06/24/2016. The patient has been noted much better without any significant wheezing, coughing. The patient was sent back to the emergency room for the patient from the nursing facility of the patient. The patient has been noted with generalized weakness and fatigue with the coughing with increased dyspnea. The patient denies any symptoms of chest pain. Denies symptoms of hemoptysis. The patient has been noted with history of chronic dementia, unable to give me any history. All the history has been obtained from past review of the medical records. She was also described as oxygen saturation of 88% to 90% on 3 liters cannula with the usual oxygen use. The patient was given DuoNeb for the patient one treatment by the EMS for this patient prior to arrival to the hospital. REVIEW OF SYSTEMS: Cannot be completed because of the patient's history of dementia. PAST MEDICAL HISTORY, SOCIAL HISTORY, SURGICAL HISTORY, FAMILY HISTORY: For this patient was reviewed for the patient remains unchanged with my recent assessment for this patient, which was done for this patient on 06/23/2016. CURRENT MEDICATIONS: Administered for the patient were noted as use of vitamin D, Lipitor, Cardizem-CD, loratadine, metoprolol tartrate, Mucinex 1200 mg b.i.d., Solu-Medrol 60 mg IV b.i.d., potassium chloride 10 mEq t.i.d., Coumadin 2 mg daily, DuoNeb every 4 hours, IV Zithromax, Rocephin and other p.r.n. medication administration. DRUG ALLERGY HISTORY: Reported no known drug allergies. PHYSICAL EXAMINATION: GENERAL: A 75-year-old female who has been currently resting, sitting on the chair. Height of 5 feet 4 inches of the patient, weight of 105 pounds, BMI 18 was recorded. VITAL SIGNS: Shows temperature noted as 97 degree Fahrenheit. The respiratory rate of the patient recorded as 17-24, heart rate 91-82, blood pressure 116/70 to 115/89. The pulse oxygen saturation for the patient recorded in the hospital for the patient 3 liters nasal canula 90% to 96% saturation. HEENT: Examination for the patient was noted with head was atraumatic. Eyes nonicterus. NECK: Supple. CARDIOVASCULAR: S1, S2 is audible. LUNGS: The patient was noted with generalized reduction in the breath sounds [place], [place] REPORT OF CONSULTATION NAME: CHESTER FARNSWORTH UNIT #: [id number] ROOM: 427 DOCTOR: KLEBER RODRIGUEZ MD,[facility] BIRTHDATE: [birth year] with mild expiratory wheezing at this time. ABDOMEN: Soft, nontender. EXTREMITIES: Shows no edema, clubbing, cyanosis. CENTRAL NERVOUS SYSTEM: No gross focal deficit. The patient unable to follow for the vocal command for detailed assessment of central nervous system. MUSCULOSKELETAL: No deformity. SKIN: No lesions or rashes noted. LABORATORY DATA: The patient's CBC on 06/27/2016, the patient's WBC count 22.1, remaining CBC was normal. CMP of the patient of 06/27/2016, the patient's BUN 26, creatinine was normal, glucose 142, potassium 2.9, sodium 146. Lactic acid was 1.8 this morning as well. The chest x-ray of the patient, which was done, 1 view for this patient during this hospitalization was noted without any acute pulmonary infiltration. Right upper lung pulmonary nodule was seen. IMPRESSION: 1. The patient has been noted with current leukocytosis, most likely effect of current acute infection effect with corticosteroids and other reasons, admitted to the hospital with recurrent exacerbation of COPD as well as acute on chronic hypoxic respiratory failure because of worsening of the hypoxia after recent discharge from the hospital. 2. Acute tracheobronchitis was also noted. 3. Chronic dementia. 4. Right upper lung progressive lesion with suspicion of malignancy for the patient. The patient does have an appointment in my office of 07/01/2016, to assess for that reason. 5. Hypokalemia. PLAN OF TREATMENT: Agree with use of corticosteroids, current antibiotics and aggressive use of bronchodilators. The INR were noted subtherapeutic, which has been currently managed for this patient to maintain the therapeutic INR. In the meantime, continue the patient on current other therapy, plan and management, usual care and therapies. Supportive care. Other usual medical management and plan of care. Thanks for allowing me to participate in the care of this patient. SHRUTHI SHAHID MD CM:CONSTR:REPORT OF CONSULTATION 05 06/28/16 1207 interface
--- NOTE | ~2016-06-27 | PR ---
[place], [place] PROGRESS NOTE NAME: CHESTER FARNSWORTH UNIT #: [id number] ROOM: 427 DOCTOR: KLEBER RODRIGUEZ MD,SHRUTHI BIRTHDATE: [birth year] DOS: 06/29/2016 SUBJECTIVE: She has been noted reduction of respiratory symptom. There were no symptoms of chest pain. The patient was continued on antibiotics and bronchodilators. She has been noted chronic dementia. OBJECTIVE: VITAL SIGNS: For the patient, which have been recorded showed normal temperature, respiratory rate 20, heart rate 72, blood pressure 142/70. HEENT: Showed no new change. NECK: Supple. CARDIOVASCULAR: S1, S2 audible. LUNGS: Without any wheeze or crackles at the present time. ABDOMEN: Soft, nontender. IMPRESSION: 1. Stable respiratory status noted at the present time with resolving exacerbation of chronic obstructive pulmonary disease. 2. History of right upper lung pulmonary nodule. PLAN OF TREATMENT: No changes in the plan of management at this time, possible consideration for discharge to the nursing facility with corticosteroids for extended period. The antibiotic would be recommended. Other treatment and plan of management as previously. SHRUTHI SHAHID MD CM:PNTRANS 1030 SHRUTHI RODRIGUEZ MD 06/29/162149 interface
[~2016-06-27 12:43] MED LIST changes: +CLARITIN10 MG PO; +DILTIAZEM ER120 MG PO; +HYDROCODONE BIT1 T11 PO
[2016-06-27 12:53] VITALS: BP 111/68
[2016-06-27 13:16] LABS: HEMATOCRIT 46.4 % (37.0-47.0); MEAN CORPUSCULAR HGB 29.4 pg (27.0-31.0); MEAN CORPUSCULAR HGB CONC 32.3 g/dl (33.0-37.0); MEAN PLATELET VOLUME 10.3 fl (9.6-12.3); PLATELET COUNT AUTOMATED 399 10*3/uL (130-400); RED CELL DISTRI WIDTH 14.2 % (0-14.5); WHITE BLOOD COUNT 22.1 10*3/uL (4.8-10.8)
[2016-06-27 13:23] LABS: INTERNATIONAL NORM RATIO 1.7 (2.0-3.5); PROTHROMBIN TIME 18.4 SECONDS (9.0-12.4)
[2016-06-27 13:33] LABS: ALBUMIN 3.3 gm/dl (3.1-4.5); ALKALINE PHOSPHATASE 147 U/L (45-117); BILIRUBIN, TOTAL 0.4 mg/dl (0.2-1.0); BUN 26 mg/dl (7-24); CARBON DIOXIDE 35 mmol/L (21-32); CHLORIDE 100 mmol/L (98-107); EST GLOM FILT AFRICAN AMERICAN > 60 ml/min; GLUCOSE 142 mg/dL (65-99); POTASSIUM 2.9 mmol/L (3.5-5.1); SGOT/AST 19 IU/L (3-35); SGPT/ALT 24 U/L (12-78); SODIUM 146 mmol/L (136-145); TOTAL PROTEIN 7.4 gm/dL (6.4-8.2)
[2016-06-27 13:34] LABS: ATYPICAL LYMPHS 1 % (0-0); EOSINOPHIL # 0.4 10*3/uL (0-0.4); EOSINOPHILS 2 % (1-4); LYMPHOCYTE # 1.1 10*3/uL (1.3-4.4); MONOCYTE # 1.3 10*3/uL (0.1-1.0); NEUTROPHIL # 19.2 10*3/uL (2.3-7.9); NEUTROPHILS 87 % (47-73); TOTAL CELLS COUNTED 100 #CELLS; TROPONIN I 0.021 ng/ml (<0.045)
[2016-06-27 13:35] LABS: PLATELET SUFFICIENCY NORMAL (NORMAL)
[2016-06-27 13:47] LABS: BILIRUBIN NEGATIVE (NEGATIVE); BLOOD 1+ (NEGATIVE); CLARITY CLEAR (CLEAR); COLOR YELLOW (YELLOW); GLUCOSE 1+ (NEGATIVE); KETONE NEGATIVE (NEGATIVE); LEUKO ESTERASE 1+ (NEGATIVE); NITRITE NEGATIVE (NEGATIVE); PROTEIN TRACE (NEGATIVE); UROBILINOGEN 0.2 E.U./dl (0.2-1.0)
[2016-06-27 13:58] LABS: BACTERIA 1+; URINE REFLEX COMMENT YES (NO)
[2016-06-27 14:15] VITALS: BP 119/70
[2016-06-27 14:40] VITALS: BP 116/70
[2016-06-27 16:00] VITALS: BP 115/89
[2016-06-27 20:00] VITALS: BP 112/59
[2016-06-27 21:28] VITALS: BP 126/80
[2016-06-28] VITALS: BP 104/54
[2016-06-28 06:31] LABS: HEMATOCRIT 42.8 % (37.0-47.0); HEMOGLOBIN 13.6 g/dl (12.0-16.0); MEAN CELL VOLUME 93.4 fl (81.0-99.0); MEAN CORPUSCULAR HGB 29.7 pg (27.0-31.0); MEAN CORPUSCULAR HGB CONC 31.8 g/dl (33.0-37.0); MEAN PLATELET VOLUME 10.3 fl (9.6-12.3); PLATELET COUNT AUTOMATED 361 10*3/uL (130-400); RED BLOOD COUNT 4.58 10*6/uL (4.10-5.10); RED CELL DISTRI WIDTH 14.2 % (0-14.5); WHITE BLOOD COUNT 14.1 10*3/uL (4.8-10.8)
[2016-06-28 06:51] LABS: ALBUMIN 2.7 gm/dl (3.1-4.5); ALKALINE PHOSPHATASE 129 U/L (45-117); BILIRUBIN, TOTAL 0.3 mg/dl (0.2-1.0); BUN 25 mg/dl (7-24); CARBON DIOXIDE 32 mmol/L (21-32); CHLORIDE 105 mmol/L (98-107); EST GLOM FILT AFRICAN AMERICAN > 60 ml/min; GLUCOSE 208 mg/dL (65-99); PHOSPHOROUS 2.9 mg/dL (2.5-4.9); SGOT/AST 12 IU/L (3-35); SGPT/ALT 22 U/L (12-78); SODIUM 144 mmol/L (136-145); TOTAL PROTEIN 6.6 gm/dL (6.4-8.2)
[2016-06-28 06:57] LABS: POTASSIUM 3.9 mmol/L (3.5-5.1)
[2016-06-28 06:59] LABS: INTERNATIONAL NORM RATIO 1.8 (2.0-3.5)
[2016-06-28 07:19] LABS: LYMPHOCYTE # 0.6 10*3/uL (1.3-4.4); NEUTROPHIL # 13.5 10*3/uL (2.3-7.9); NEUTROPHILS 96 % (47-73); TOTAL CELLS COUNTED 100 #CELLS
[2016-06-28 07:21] LABS: PLATELET SUFFICIENCY NORMAL (NORMAL)
[2016-06-28 08:00] VITALS: BP 152/80
[2016-06-28 16:00] VITALS: BP 140/50
[2016-06-28 21:17] VITALS: BP 122/76
[2016-06-29] VITALS: BP 144/85
[2016-06-29 05:59] LABS: HEMATOCRIT 40.7 % (37.0-47.0); HEMOGLOBIN 12.8 g/dl (12.0-16.0); MEAN CELL VOLUME 93.8 fl (81.0-99.0); MEAN CORPUSCULAR HGB 29.5 pg (27.0-31.0); MEAN CORPUSCULAR HGB CONC 31.4 g/dl (33.0-37.0); PLATELET COUNT AUTOMATED 350 10*3/uL (130-400); RED BLOOD COUNT 4.34 10*6/uL (4.10-5.10); RED CELL DISTRI WIDTH 14.2 % (0-14.5)
[2016-06-29 06:21] LABS: BUN 26 mg/dl (7-24); CARBON DIOXIDE 32 mmol/L (21-32); CHLORIDE 106 mmol/L (98-107); EST GLOM FILT AFRICAN AMERICAN > 60 ml/min; GLUCOSE 247 mg/dL (65-99); SODIUM 142 mmol/L (136-145)
[2016-06-29 06:27] LABS: INTERNATIONAL NORM RATIO 2.6 (2.0-3.5); PROTHROMBIN TIME 28.8 SECONDS (9.0-12.4)
[2016-06-29 07:33] LABS: ATYPICAL LYMPHS 1 % (0-0); LYMPHOCYTE # 0.9 10*3/uL (1.3-4.4); METAMYELOCYTES 1 % (0-0); MONOCYTE # 0.5 10*3/uL (0.1-1.0); NEUTROPHIL # 16.4 10*3/uL (2.3-7.9); NEUTROPHILS 91 % (47-73); PLATELET SUFFICIENCY NORMAL (NORMAL); TOTAL CELLS COUNTED 100 #CELLS
[2016-06-29 08:00] VITALS: BP 142/70
[2016-06-29 12:00] VITALS: BP 141/80
[2016-06-29] MEDS ORDERED: LEVOFLOXACIN500 MG PO (13:53)
[2016-06-29] MEDS ORDERED: PREDNISONE10 MG PO (13:53)
[2016-06-29 16:00] VITALS: BP 136/62
== END 2016-06-29 17:41 | disposition other institution (70) | DRG 871 ==
LOC: ED 12:43 → 4E 14:07 → EDHOLD 14:07 → 4E 14:34
PROVIDERS: Family Medicine; Nurse Practitioner Family
DX: A41.9 Sepsis, unspecified organism (principal); J18.9 Pneumonia, unspecified organism; J96.21 Acute and chronic respiratory failure with hypoxia; E43 Unspecified severe protein-calorie malnutrition; I11.0 Hypertensive heart disease with heart failure; E87.0 Hyperosmolality and hypernatremia; I50.32 Chronic diastolic (congestive) heart failure; F03.90 Unspecified dementia, unspecified severity, without behavioral disturbance, psychotic disturbance, mood disturbance, and anxiety; N39.0 Urinary tract infection, site not specified; J44.1 Chronic obstructive pulmonary disease with (acute) exacerbation; J44.0 Chronic obstructive pulmonary disease with (acute) lower respiratory infection; Z68.1 Body mass index [BMI] 19.9 or less, adult; Z66 Do not resuscitate; E87.6 Hypokalemia; R73.9 Hyperglycemia, unspecified; I25.10 Atherosclerotic heart disease of native coronary artery without angina pectoris; I48.2 Chronic atrial fibrillation; R91.1 Solitary pulmonary nodule; I73.9 Peripheral vascular disease, unspecified; F32.9 Major depressive disorder, single episode, unspecified; Z79.01 Long term (current) use of anticoagulants; Z99.81 Dependence on supplemental oxygen; I25.2 Old myocardial infarction; Z86.73 Personal history of transient ischemic attack (TIA), and cerebral infarction without residual deficits; Z87.891 Personal history of nicotine dependence; Z82.49 Family history of ischemic heart disease and other diseases of the circulatory system; Z80.1 Family history of malignant neoplasm of trachea, bronchus and lung; Z79.1 Long term (current) use of non-steroidal anti-inflammatories (NSAID); Z79.899 Other long term (current) drug therapy

== ENCOUNTER 2017-08-01 17:53 | Inpatient (IN) | payer MEDICARE, MEDICAID ==
[~2017-08-01] VITALS: Ht 162.6 cm; Wt 55.5 kg
--- NOTE | ~2017-08-01 | EKG ---
[place], [place] ELECTROCARDIOGRAM REPORT NAME: CHESTER FARNSWORTH UNIT #: [id number] ROOM: 419 DOCTOR: KLEBER RODRIGUEZ MD,SHRUTHI BIRTHDATE: [birth year] DOS: 08/01/2017 ELECTROCARDIOGRAM The electrocardiogram done on 08/01/2017 at 6:12 p.m. Normal sinus rhythm noted. Heart rate of 66 beats per minute. SHRUTHI SHAHID MD CM:EKGRPT:ELECTROCARDIOGRAM REPORT 1243 1305 SHRUTHI RODRIGUEZ MD
--- NOTE | ~2017-08-01 | CON ---
[place], [place] REPORT OF CONSULTATION NAME: CHESTER FARNSWORTH UNIT #: [id number] ROOM: 419 DOCTOR: KLEBER RODRIGUEZ MD,SHRUTHI BIRTHDATE: [birth year] DOS: 08/03/2017 PULMONARY CONSULTATION, EVALUATION, AND MANAGEMENT REASON FOR CONSULTATION: Assess the patient's current enlarging pulmonary nodule in the right upper lobe. HISTORY OF PRESENT ILLNESS: This is a 76-year-old white female known to me with history of pulmonary nodule, which has been noted in the right upper lung over a year. The diagnosis of malignancy was suspected strongly for the patient, but the workup was not done as the patient's family member does not wish to have any further assessment done for that current suspected malignancy because of history of advanced dementia with the COPD and advanced respiratory failure. The patient currently resides in the [facility]. The patient is unable to give any history because of history of chronic dementia. She was noted pleasant but confused. The patient was brought to the Emergency Room by the ambulance. The patient has reported symptoms of chest discomfort with the shortness of breath and that is the only symptom described in the report. The patient has not been reported with any symptoms of any chest pain or hemoptysis. The symptoms of wheezing for the patient were not reported. REVIEW OF SYSTEMS: Could not be completed because of the patient's current history of long-term dementia. PAST MEDICAL HISTORY: 1. Noted with hospitalization in June. At that time, she was managed for acute exacerbation of COPD of the patient and after the improvement of the patient's respiratory status she was [facility] back [facility] the [facility] facility. 2. History of chronic hypoxic respiratory failure, use of oxygen 3 liters nasal cannula. 3. Advanced chronic obstructive pulmonary disease. 4. History of partial complex seizure. 5. Pneumonia. 6. Atrial fibrillation. 7. Chronic intermittent diarrhea history. 8. Raynaud's disease. 9. Right upper lung pulmonary nodule. SOCIAL HISTORY: Reported as the patient is , lives at the [facility], a long-term resident. No history of alcohol use or illicit drug use. Tobacco use noted from teenager, 2 packs of cigarettes per day, discontinued about 6 years ago per family members. PAST SURGICAL HISTORY: Reported as: 1. ____. 2. Left carotid endarterectomy. FAMILY HISTORY: Completely unknown. [place], [place] REPORT OF CONSULTATION NAME: CHESTER FARNSWORTH UNIT #: [id number] ROOM: 419 DOCTOR: KLEBER RODRIGUEZ MD,SHRUTHI BIRTHDATE: [birth year] CURRENT MEDICATIONS: Current medications administered for the patient were noted as use of: 1. Solu-Medrol 40 mg b.i.d. 2. Coumadin 2 mg alternating 1 mg daily. 3. Lipitor. 4. Potassium chloride. 5. Loratadine. 6. Cardizem CD. 7. Vitamin D. 8. Dulera 200/5. 9. Metoprolol tartrate. 10. Flonase. 11. DuoNeb q. 4 hours. 12. Levaquin. 12. IV Zosyn and vancomycin. DRUG ALLERGY HISTORY: The patient noted with no known drug allergies. PHYSICAL EXAMINATION: GENERAL: This is 76-year-old white female noted pleasant, with confusion, comfortable on the bed, lying down at this time. Height of 5 feet 4 inches, weight 125 pounds, BUN 21.5. VITAL SIGNS: The patient reported with normal temperature in the last 48 hours since admission. Respiratory rate was recorded as 24 at admission and 20 this morning. Heart rate ranged between 92 and 64. The blood pressure 134/57-106/71. Pulse oxygen saturation with the patient on 3 liters nasal cannula is 96% saturation. HEENT: Examination shows head was atraumatic. Eyes nonicterus. NECK: Supple. CARDIOVASCULAR: S1, S2 is audible. LUNGS: The patient was noted with general reduction in breath sounds with mild expiratory wheezing without any crackles. ABDOMEN: Soft, nontender, bowel sounds present. EXTREMITIES: The patient was noted without any acute edema, clubbing or cyanosis. MUSCULOSKELETAL: Noted without any acute deformities. SKIN: Noted without lesions or rashes. LABORATORY DATA: CBC of the patient from 08/01/2017 was noted normal. BMP of the patient from 08/02/2017, glucose 173, BUN normal, creatinine was normal. Calcium was noted as low without correction with albumin. The PT/INR today noted 2.6, which is therapeutic. CMP this morning, BUN 17, glucose of 220, potassium 3.4. CBC this morning, WBC count elevated at 17,000, otherwise CBC normal. Blood culture from 07/01/2017 showed no bacterial growth. Urine culture, no bacterial growth. The patient's sputum culture was not performed. The patient has not expectorated any sputum to send for cultures. IMAGING STUDIES: The review of the radiology data for this patient: Chest x-ray of the patient that was done at admission on 08/01/2017 noted with changes of COPD. The patient noted with a right upper lung pulmonary nodule of the [place], [place] REPORT OF CONSULTATION NAME: CHESTER FARNSWORTH UNIT #: [id number] ROOM: [facility] DOCTOR: KLEBER RODRIGUEZ MD,[facility] BIRTHDATE: [birth year] patient as well that appeared to be increased in the size as compared to previous chest x-ray. Several CT scans of the chest have been done and the current CT scan of the patient was noted with a pulmonary nodule in the right upper lung 2 x 1.7 cm in size, increased from previous CT scan comparison of the patient of 06/24/2016 from 1.5 x 1.2 cm in size at that time. Severe changes of COPD with centrilobular emphysema changes were also noted. IMPRESSION: 1. The patient with a known history of pulmonary nodule, suspected malignancy in the right upper lung, which will not be further investigated per request of the family member, very well known by the family members about the suspected malignancy. 2. The patient with acute exacerbation of chronic obstructive pulmonary disease noted at this time with history of chronic hypoxic respiratory failure as well. 3. Hypokalemia as well. 4. History of chronic dementia as well. 5. Hyperglycemia secondary to corticosteroids. 6. Leukocytosis, most likely related to corticosteroids. PLAN OF TREATMENT: I agree with the current use of the corticosteroid for the patient at current dose. The patient was getting too many broad spectrum intravenous antibiotics with the limit of the antibiotic use will be done with de-escalation because there was no evidence of acute pneumonia noted on the chest x-ray or the CT scan of the chest. Symptomatic management of the patient's other problems. Continue anticoagulation, which was noted therapeutic as well. Other supportive therapy, plan of management and care plan. With drug interaction with antibiotics certainly the INR could become therapeutic with adjustment of the dose could be done accordingly. Other supportive therapy, plan of management and care plan. Additional treatment changes need to be done for this patient based on the progression of the current illness. Sputum for Gram stain and culture could be done if the patient does expectorate julia sputum. Otherwise, empirical treatment to be continued. Leukocytosis observed on the CBC of the patient most likely due to use of corticosteroid other than any acute new infection. SHRUTHI SHAHID MD CM:CONSTR:REPORT OF CONSULTATION 1400 08/03/17 2122 interface
--- NOTE | ~2017-08-01 | PR ---
[place], [place] PROGRESS NOTE NAME: CHESTER FARNSWORTH UNIT #: [id number] ROOM: 419 DOCTOR: KLEBER RODRIGUEZ MD,SHRUTHI BIRTHDATE: [birth year] DOS: 08/04/2017 SUBJECTIVE: The patient noted comfortable at this time without any acute distress, resting, noted with pleasant confusional status. OBJECTIVE: VITAL SIGNS: For the patient, which have been recorded showed normal temperature, respiratory rate 18, heart rate 94, blood pressure 122/69. The pulse oximetry was noted as 97% saturation on 2 liters nasal cannula. HEENT: Examination shows no acute change. NECK: Supple. CARDIOVASCULAR: S1, S2 audible. LUNGS: Clear to auscultation bilaterally. ABDOMEN: Soft, nontender. Bowel sounds present. EXTREMITIES: Without any acute edema. LABORATORY DATA: INR noted 3.5 today. CBC: WBC count 18.3. IMPRESSION: 1. The patient with an enlarging nodule in the right upper lung, suspected for malignancy most likely squamous cell cancer. 2. History of chronic dementia. 3. Acute exacerbation of chronic obstructive pulmonary disease with chronic hypoxic respiratory failure. PLAN OF MANAGEMENT: No change in pulmonary standpoint. The patient could be considered for [facility]. No change in treatment otherwise will be recommended. Tapering dose of prednisone could be given with other appropriate medication post discharge. SHRUTHI SHAHID MD CM:PNTRANS 1051 [id number] SHRUTHI RODRIGUEZ MD 08/04/17 1441 interface
[2017-08-01 17:53] VITALS: BP 157/71
[2017-08-01 18:28] LABS: BASO # 0.1 10*3/uL (0.0-0.1); BASO % 0.4 % (0.0-1.0); EOS # 0.2 10*3/uL (0.0-0.4); EOS % 1.5 % (1.0-4.0); HEMATOCRIT 42.7 % (37.0-47.0); HEMOGLOBIN 13.3 g/dl (12.0-16.0); LYMPH # 1.4 10*3/uL (1.3-4.4); LYMPH % 10.9 % (27.0-41.0); MEAN CELL VOLUME 94.9 fl (81.0-99.0); MEAN CORPUSCULAR HGB 29.6 pg (27.0-31.0); MEAN CORPUSCULAR HGB CONC 31.1 g/dl (33.0-37.0); MEAN PLATELET VOLUME 10.8 fl (9.6-12.3); MONO % 7.7 % (3.0-9.0); NEUT # 10.3 10*3/uL (2.3-7.9); NEUT % 78.9 % (47.0-73.0); PLATELET COUNT AUTOMATED 307 10*3/uL (130-400); RED CELL DISTRI WIDTH 15.3 % (0-14.5)
[2017-08-01 18:38] LABS: ACT PARTIAL THROMBO TIME 31.9 SECONDS (20.8-31.5); INTERNATIONAL NORM RATIO 2.3 (2.0-3.5)
[2017-08-01 18:56] LABS: ALBUMIN 3.5 gm/dl (3.1-4.5); ALKALINE PHOSPHATASE 128 U/L (45-117); BUN 22 mg/dl (7-24); CHLORIDE 104 mmol/L (98-107); CREATININE 1.45 mg/dL (0.55-1.02); POTASSIUM 3.8 mmol/L (3.5-5.1); SGOT/AST 25 IU/L (3-35); SGPT/ALT 25 U/L (12-78); SODIUM 143 mmol/L (136-145); TOTAL PROTEIN 7.2 gm/dL (6.4-8.2)
[2017-08-01 19:00] LABS: TROPONIN I < 0.015 ng/ml (<0.045)
[2017-08-01 19:13] VITALS: BP 151/77
[2017-08-01 20:26] VITALS: BP 156/57
[2017-08-01 20:35] VITALS: BP 165/69
[2017-08-01] MEDS ORDERED: FLONASE ALLERG9.9 ML NAS (21:43)
[2017-08-02] VITALS: BP 114/56
[2017-08-02 04:00] VITALS: BP 134/57
[2017-08-02 06:05] LABS: HEMATOCRIT 40.3 % (37.0-47.0); HEMOGLOBIN 12.8 g/dl (12.0-16.0); MEAN CELL VOLUME 92.4 fl (81.0-99.0); MEAN CORPUSCULAR HGB 29.4 pg (27.0-31.0); MEAN CORPUSCULAR HGB CONC 31.8 g/dl (33.0-37.0); MEAN PLATELET VOLUME 10.3 fl (9.6-12.3); PLATELET COUNT AUTOMATED 261 10*3/uL (130-400); RED BLOOD COUNT 4.36 10*6/uL (4.10-5.10); RED CELL DISTRI WIDTH 15.1 % (0-14.5); WHITE BLOOD COUNT 10.4 10*3/uL (4.8-10.8)
[2017-08-02 06:24] LABS: BUN 17 mg/dl (7-24); CHLORIDE 105 mmol/L (98-107); CHOLESTEROL 124 mg/dL (<200); CREATININE 0.96 mg/dL (0.55-1.02); HDL CHOLESTEROL 59 mg/dl (40-60); LDL CHOLESTEROL 43 mg/dL (9-159); PHOSPHOROUS 2.9 mg/dL (2.5-4.9); POTASSIUM 3.5 mmol/L (3.5-5.1); SODIUM 140 mmol/L (136-145); TRIGLYCERIDES 108 mg/dl (<150); VLDL CHOLESTEROL 22 mg/dL (6-40)
[2017-08-02 06:33] LABS: ACT PARTIAL THROMBO TIME 34.2 SECONDS (20.8-31.5); INTERNATIONAL NORM RATIO 2.7 (2.0-3.5)
[2017-08-02 07:07] LABS: TOTAL CELLS COUNTED 100 #CELLS
[2017-08-02 07:08] LABS: PLATELET SUFFICIENCY NORMAL (NORMAL)
[2017-08-02 08:00] VITALS: BP 153/76
[2017-08-02 11:27] LABS: BILIRUBIN NEGATIVE (NEGATIVE); BLOOD 1+ (NEGATIVE); CLARITY CLEAR (CLEAR); COLOR YELLOW (YELLOW); GLUCOSE 3+ (NEGATIVE); KETONE NEGATIVE (NEGATIVE); LEUKO ESTERASE NEGATIVE (NEGATIVE); NITRITE NEGATIVE (NEGATIVE); PH 6.5 (5.0-9.0); UROBILINOGEN 0.2 E.U./dl (0.2-1.0)
[2017-08-02 12:00] VITALS: BP 159/73
[2017-08-02 16:00] VITALS: BP 122/53
[2017-08-02 20:00] VITALS: BP 146/64
[2017-08-03] VITALS: BP 144/65
[2017-08-03 06:03] LABS: HEMATOCRIT 39.1 % (37.0-47.0); MEAN CORPUSCULAR HGB 28.8 pg (27.0-31.0); MEAN CORPUSCULAR HGB CONC 30.7 g/dl (33.0-37.0); MEAN PLATELET VOLUME 10.6 fl (9.6-12.3); PLATELET COUNT AUTOMATED 286 10*3/uL (130-400); RED BLOOD COUNT 4.16 10*6/uL (4.10-5.10); RED CELL DISTRI WIDTH 15.2 % (0-14.5)
[2017-08-03 06:25] LABS: INTERNATIONAL NORM RATIO 2.6 (2.0-3.5)
[2017-08-03 06:27] LABS: ALKALINE PHOSPHATASE 91 U/L (45-117); BUN 17 mg/dl (7-24); CHLORIDE 105 mmol/L (98-107); CREATININE 1.05 mg/dL (0.55-1.02); POTASSIUM 3.4 mmol/L (3.5-5.1); SGOT/AST 6 IU/L (3-35); SGPT/ALT 18 U/L (12-78); SODIUM 141 mmol/L (136-145); TOTAL PROTEIN 6.7 gm/dL (6.4-8.2)
[2017-08-03 06:57] LABS: PLATELET SUFFICIENCY NORMAL (NORMAL); TOTAL CELLS COUNTED 100 #CELLS
[2017-08-03 08:00] VITALS: BP 114/70
[2017-08-03 12:00] VITALS: BP 106/71
[2017-08-03 16:00] VITALS: BP 111/58
[2017-08-03 20:00] VITALS: BP 112/83; BP 148/62
[2017-08-04] VITALS: BP 105/67
[2017-08-04 07:00] LABS: HEMATOCRIT 38.6 % (37.0-47.0); MEAN CELL VOLUME 93.7 fl (81.0-99.0); MEAN CORPUSCULAR HGB 29.1 pg (27.0-31.0); MEAN CORPUSCULAR HGB CONC 31.1 g/dl (33.0-37.0); MEAN PLATELET VOLUME 10.2 fl (9.6-12.3); PLATELET COUNT AUTOMATED 309 10*3/uL (130-400); RED BLOOD COUNT 4.12 10*6/uL (4.10-5.10); RED CELL DISTRI WIDTH 15.5 % (0-14.5); WHITE BLOOD COUNT 18.3 10*3/uL (4.8-10.8)
[2017-08-04 07:16] LABS: BUN 25 mg/dl (7-24); CHLORIDE 103 mmol/L (98-107); CREATININE 0.93 mg/dL (0.55-1.02); POTASSIUM 3.8 mmol/L (3.5-5.1); SGOT/AST 11 IU/L (3-35); SGPT/ALT 21 U/L (12-78); SODIUM 140 mmol/L (136-145); TOTAL PROTEIN 6.7 gm/dL (6.4-8.2)
[2017-08-04 07:17] LABS: ALKALINE PHOSPHATASE 80 U/L (45-117)
[2017-08-04 07:32] LABS: INTERNATIONAL NORM RATIO 3.5 (2.0-3.5)
[2017-08-04 08:00] VITALS: BP 122/69
[2017-08-04 08:03] LABS: PLATELET SUFFICIENCY NORMAL (NORMAL); TOTAL CELLS COUNTED 100 #CELLS
[2017-08-04] MEDS ORDERED: PREDNISONE10 MG PO (11:20)
[2017-08-04] MEDS ORDERED: LEVAQUIN750 M1 PO (11:20)
[2017-08-04] MEDS ORDERED: HYDROCODONE-AC1 EAC1 PO (11:20)
[2017-08-04 12:00] VITALS: BP 116/63
== END 2017-08-04 12:56 | disposition other institution (70) | DRG 872 ==
LOC: ED 17:53 → EDHOLD 20:06 → 4E 20:06
PROVIDERS: Emergency Medicine; Internal Medicine; Internal Medicine Hospice and Palliative Medicine; Student in an Organized Health Care Education/Training Program
DX: A41.9 Sepsis, unspecified organism (principal); J96.11 Chronic respiratory failure with hypoxia; E11.51 Type 2 diabetes mellitus with diabetic peripheral angiopathy without gangrene; E11.65 Type 2 diabetes mellitus with hyperglycemia; I13.0 Hypertensive heart and chronic kidney disease with heart failure and stage 1 through stage 4 chronic kidney disease, or unspecified chronic kidney disease; E44.1 Mild protein-calorie malnutrition; J44.1 Chronic obstructive pulmonary disease with (acute) exacerbation; Z66 Do not resuscitate; I48.0 Paroxysmal atrial fibrillation; F03.90 Unspecified dementia, unspecified severity, without behavioral disturbance, psychotic disturbance, mood disturbance, and anxiety; I73.00 Raynaud's syndrome without gangrene; I25.10 Atherosclerotic heart disease of native coronary artery without angina pectoris; F32.9 Major depressive disorder, single episode, unspecified; T38.0X5A Adverse effect of glucocorticoids and synthetic analogues, initial encounter; R91.1 Solitary pulmonary nodule; E87.6 Hypokalemia; Z79.01 Long term (current) use of anticoagulants; Z79.899 Other long term (current) drug therapy; Z95.818 Presence of other cardiac implants and grafts; Z82.49 Family history of ischemic heart disease and other diseases of the circulatory system; Z80.1 Family history of malignant neoplasm of trachea, bronchus and lung; Z99.81 Dependence on supplemental oxygen; Z86.73 Personal history of transient ischemic attack (TIA), and cerebral infarction without residual deficits; I25.2 Old myocardial infarction; Z87.440 Personal history of urinary (tract) infections; Y92.89 Other specified places as the place of occurrence of the external cause; Z68.21 Body mass index [BMI] 21.0-21.9, adult

== ENCOUNTER 2017-09-05 07:59 | Inpatient (IN) | payer MEDICARE, MEDICAID ==
[~2017-09-05] VITALS: Ht 162.5 cm; Wt 54.2 kg
--- NOTE | ~2017-09-05 | EKG ---
[place], [place] ELECTROCARDIOGRAM REPORT NAME: CHESTER FARNSWORTH UNIT #: [id number] ROOM: 512 DOCTOR: KLEBER RODRIGUEZ MD,SHRUTHI BIRTHDATE: [birth year] DOS: 09/05/2017 Electrocardiogram was done on 09/05/2017 at 3:10 p.m. The electrocardiogram shows evidence of atrial flutter for this patient with heart rate 97 beats per minute. SHRUTHI SHAHID MD CM:EKGRPT:ELECTROCARDIOGRAM REPORT 1138 1229 SHRUTHI RODRIGUEZ MD
--- NOTE | ~2017-09-05 | PROC NOTE ---
[place], [place] PROCEDURE NOTE NAME: CHESTER FARNSWORTH UNIT #: [id number] ROOM: 512 DOCTOR: KLEBER RODRIGUEZ MD,SHRUTHI BIRTHDATE: [birth year] DOS: 09/13/2017 PROCEDURE: Right-sided thoracentesis under ultrasound guidance. PREOPERATIVE DIAGNOSIS: Right pleural fluid. POSTOPERATIVE DIAGNOSIS: Removal of ____ mL of pleural fluid, right pleural space without difficulty. PROCEDURE DESCRIPTION: Informed consent obtained from the patient's daughter. The patient was placed in sitting position. Ultrasound of the chest was personally performed. The site of thoracentesis was marked, the patient's right lower mid posterior chest wall. After that, the skin was cleaned with chlorhexidine solution. A 1% lidocaine was administered in the skin and intercostal space. During administration of local anesthetic, the right pleural space was entered, a small amount of fluid was aspirated. After that small incision was given in the skin. [place] thoracentesis introduced through the incision into the right pleural space. A total of ____ mL pleural fluid was removed including for all the samples. The procedure was tolerated by the patient very well. Chest x-ray post-procedure shows minimal remaining pleural fluid. Left side pleural field appeared to be clear. There was no pneumothorax. The fluid was sent for all the appropriate testing. Postoperative findings were discussed with patient's daughter in detail as well. SHRUTHI SHAHID MD CM:PROCNOTE:PROCEDURE NOTE 1030 1554 SHRUTHI RODRIGUEZ MD
--- NOTE | ~2017-09-05 | EKG ---
[place], [place] ELECTROCARDIOGRAM REPORT NAME: CHESTER FARNSWORTH UNIT #: [id number] ROOM: 512 DOCTOR: KLEBER RODRIGUEZ MD,SHRUTHI BIRTHDATE: [birth year] DOS: 09/05/2017 Electrocardiogram done on 09/05/2017 at 11:36 a.m. The electrocardiogram shows atrial flutter. Heart rate 97 beats per minute. PVC was also noted. SHRUTHI SHAHID MD CM:EKGRPT:ELECTROCARDIOGRAM REPORT 1139 1234 SHRUTHI RODRIGUEZ MD
--- NOTE | ~2017-09-05 | PR ---
[place], [place] PROGRESS NOTE NAME: CHESTER FARNSWORTH UNIT #: [id number] ROOM: 512 DOCTOR: SHRUTHI CALVIN MD BIRTHDATE: [birth year] DOS: 09/14/2017 SUBJECTIVE: She was noted comfortable at this time, resting on the bed, underwent thoracentesis, large volume pleural fluid drained from the right pleural space without any difficulty. She has been noted comfortable at this time, resting on the bed without any symptoms of shortness of breath or cough or wheezing. OBJECTIVE: VITAL SIGNS: Normal temperature, respiratory rate 20, heart rate 62, blood pressure 92/52. The pulse ox saturation on 2 liters nasal cannula 93% saturation. HEENT: Head was atraumatic. Eyes nonicterus. NECK: Supple. CARDIOVASCULAR: S1, S2 audible. LUNGS: No wheeze or crackles. ABDOMEN: Soft, nontender. Bowel sounds present. EXTREMITIES: Without any acute edema. LABORATORY DATA: The echocardiogram on 09/10/2017 was reported by the fingernail former, Dr. Salmon's report has left ventricular ejection fraction 25%-30%. IMPRESSION: 1. The patient with cardiomyopathy, congestive heart failure with atrial fibrillation as well. 2. Status post thoracentesis. The patient transudative pleural fluid as reviewed. PLAN OF TREATMENT: Diuretic therapy. Medical management of congestive heart failure to be optimized. The patient has atrial fibrillation per cardiology services, follow the recommendations. Continuation of the bronchodilators and the anticoagulation, which are resumed after thoracentesis. Transfer to nursing facility whenever desired. The note to be started in the beginning the patient was independently seen and examined, [id number] encounter the patient's current pulmonary addendum note. History was confirmed from the patient. The labs were reviewed. Physical examination performed the assessment and management. Recommendation personally made for the patient today's visit. The note done by the medical pathology teacher was approved as well. [place], [place] PROGRESS NOTE NAME: CHESTER FARNSWORTH UNIT #: [id number] ROOM: 512 DOCTOR: SHRUTHI CALVIN MD BIRTHDATE: [birth year] SHRUTHI SHAHID MD CM:PNTRANS 1052 1449 SHRUTHI RODRIGUEZ MD 09/27/17 1003 interface
--- NOTE | ~2017-09-05 | EKG ---
[place], [place] ELECTROCARDIOGRAM REPORT NAME: CHESTER FARNSWORTH UNIT #: [id number] ROOM: 512 DOCTOR: SARAH DRAFT REPORT BIRTHDATE: [birth year] [facility] Test Date: 2017-09-05 Test Time: 11:36:38 Pat Name: CHESTER FARNSWORTH Department: Room: Gender: F Loan Consultant: : 1940 Requested By: GAYE DUEÑAS Order Number: [id number] Reading MD: Measurements Intervals Hodges Rate: 97 P: NE: QRS: 21 QRSD: 97 T: QT: 382 QTc: 486 Interpretive Statements Atrial flutter Low voltage, extremity leads Anteroseptal infarct, old Repol abnrm suggests ischemia, inferior leads No previous ECG available for comparison CM:EKGRPT:ELECTROCARDIOGRAM REPORT 1136 0839 GAYE SMITH DRAFT REPORT GAYE DUEÑAS MD
--- NOTE | ~2017-09-05 | EKG ---
[place], [place] ELECTROCARDIOGRAM REPORT NAME: CHESTER FARNSWORTH UNIT #: [id number] ROOM: 512 DOCTOR: KLEBER RODRIGUEZ MD,SHRUTHI BIRTHDATE: [birth year] DOS: 09/05/2017 ELECTROCARDIOGRAM DATE AND TIME OF PROCEDURE: 09/05/2017 at 08:33 a.m. FINDINGS: Atrial fibrillation, rapid ventricular response. Heart rate of 108 beats per minute. Poor R-wave progression was also noted in the chest leads. SHRUTHI SHAHID MD CM:EKGRPT:ELECTROCARDIOGRAM REPORT 1344 1405 SHRUTHI RODRIGUEZ MD
--- NOTE | ~2017-09-05 | CON ---
[place], [place] REPORT OF CONSULTATION NAME: CHESTER FARNSWORTH UNIT #: [id number] ROOM: 512 DOCTOR: ELVA MARCOS DO BIRTHDATE: [birth year] DOS: 09/10/2017 RENAL CONSULTATION REASON FOR CONSULTATION: Acute kidney injury. HISTORY OF PRESENT ILLNESS: A pleasant 76-year-old female. She has dementia; therefore history is obtained by reviewing her current past charts. COPD, atrial fibrillation, coronary artery disease, details on this are unclear, and depression. She had previous CVA and seizures in the past and reported history of myocardial infarction. She has undiagnosed lung mass, felt to be malignancy, but not pursued due to underlying dementia, question of chronic kidney disease. Her baseline creatinine is unclear to me. It seems to fluctuate values of approximately 1 to 2 range. No clear past evaluation for this. Presentation from a long-term due to dyspnea. Initially, she is thought to be perhaps volume depleted and given IV fluid, but this led to worsening hypoxia. She is noted to have bilateral pleural effusions subsequently placed on Lasix yesterday. Unfortunately, the patient is incontinent and as such output has not been able to be adequately assessed. She is noted to have a creatinine of 1.63 on admission, it did slightly improved down to 1.26 as of yesterday with IV fluid, but as noted, IV fluids were stopped, it is increased back today to 1.55. Chemistry is otherwise unremarkable. Stable hemoglobin and hematocrit, stable white count since admission. Did have an urinalysis performed yesterday, oddly it showed a concentrated specimen with a specific gravity greater than 1.030 despite having received IV fluids, 2+ protein, 1+ bilirubin with epithelial cells noted. Her medication list does not reveal exposure to any potential nephrotoxic agents. She has chronic ischemic rubor and cyanotic changes of her feet. No reports of skin rash otherwise. Reportedly, eating well without any reports of nausea, vomiting or diarrhea. PAST MEDICAL HISTORY: See above. ALLERGIES: No known drug allergies. CURRENT MEDICATIONS: Coumadin as directed, potassium chloride 20 mEq q. day, furosemide 40 mg IV q. day, vitamin D 2000 IU q. day, Claritin 10 mg q. day, diltiazem 120 mg p.o. q. day, atorvastatin 20 mg q. day, Protonix 40 mg p.o. q. day, metoprolol 50 mg q.12 hours, Flonase q. 12 hours via nasal passages via the nares bilaterally. SOCIAL HISTORY: She resides at long-term. FAMILY HISTORY: Noncontributory. REVIEW OF SYSTEMS: Please see HPI. Full 10-point review of systems was performed and obtained the above noted measures, was unremarkable except what is noted in HPI. PHYSICAL EXAMINATION: VITAL SIGNS: Blood pressure 100/52, pulse 51, respirations 16, temperature is [place], [place] REPORT OF CONSULTATION NAME: CHESTER FARNSWORTH UNIT #: [id number] ROOM: [facility] DOCTOR: ELVA MARCOS DO BIRTHDATE: [birth year] 97.5 degrees Fahrenheit. GENERAL APPEARANCE: An elderly female, awake, alert, no apparent distress. HEENT: Conjunctivae pink and moist. Mucosa pink and moist. NECK: JVD is noted. There is no carotid bruit, thyromegaly or adenopathy appreciated. LUNGS: Diminished at each lung base. HEART: Irregularly irregular with an S3. Rub or murmur cannot be appreciated. ABDOMEN: Protuberant, positive bowel sounds x 4, nontender, without CVA tenderness noted. No rebound, guarding or rigidity noted. No abdominal or flank bruits appreciated. NEUROLOGIC: Grossly nonfocal. EXTREMITIES: No clubbing, cyanosis. A +2 flank and +1 presacral edema noted. There is trace pretibial edema noted. Pulses positive by radial, absent dorsalis pedis. SKIN: Warm and dry with ischemic rubor and cyanotic changes noted in bilateral lower extremities. LABORATORY DATA: From today, sodium is 144, potassium 4.3, chloride 109, CO2 of 24, BUN of 24, creatinine 1.55, glucose 176, calcium is 8.4, albumin is 2.7, total protein 6.2, ALT is 31, AST is 24, alkaline phosphatase is 173, total bilirubin 0.5. IMPRESSION: 1. Acute kidney injury with baseline as noted. There seems to be some degree of fluctuation of renal failure. Etiology of TRISH is not clear. She has been hemodynamically stable and afebrile. Creatinine is essentially unchanged since admission, worse than when last checked in July 2007. Though again, there was fluctuation at that point in time and volume status is unclear. This may be acute discovery of chronic kidney disease, cannot rule out a component of urinary retention.1. 2. 2. Hypertension. Blood pressure is under satisfactory control. 3. 3. Pleural effusions, being diuresed. RECOMMENDATIONS: Agree with ongoing management including current use of diuretics. Follow intake and output as able along with renal function and electrolytes. Check renal ultrasound to evaluate renal size and symmetry and evaluate for any evidence of hydronephrosis. Thank you for allowing us to participate in the care of the patient. We will gladly follow while she is hospitalized. Sincerely, [place], [place] REPORT OF CONSULTATION NAME: CHESTER FARNSWORTH UNIT #: [id number] ROOM: 512 DOCTOR: ELVA MARCOS DO BIRTHDATE: [birth year] ELVA MARCOS DO CM:CONSTR:REPORT OF CONSULTATION 1559 09/23/17 0800 interface
--- NOTE | ~2017-09-05 | CON ---
[place], [place] REPORT OF CONSULTATION NAME: CHESTER FARNSWORTH UNIT #: [id number] ROOM: 512 DOCTOR: KLEBER RODRIGUEZ MDSHRUTHI BIRTHDATE: [birth year] DOS: 09/09/2017 PULMONARY CONSULTATION, EVALUATION, MANAGEMENT REASON FOR CONSULTATION: Assessment of current pleural fluid with symptoms of shortness of breath. CONSULTATION REQUESTED BY: Hospitalist Services. HISTORY OF PRESENT ILLNESS: The patient is a 76-year-old white female patient with history of long-term dementia as well as known lung cancer, which was suspected not assessed because of history of dementia and per preference of the patient's family members. She is admitted to the hospital from a nursing facility. She has been noted with dementia and is unable to give me any history. She has been admitted to the hospital under the care of Hospitalist Services on 09/05/2017. The patient has been noted with increased edema of the lower extremities, increased shortness of breath reported at the time of presentation. The chest x-ray which was done for the patient was also reported with pleural fluid, which seemed to be worsened. The patient has been getting intravenous fluids from admission as well, which has been just turned off for the patient this morning as well. She was not noted with any symptoms of coughing or chest pain reported. REVIEW OF SYSTEMS: Could not be completed because of the patient's inability to have normal verbal communication and understandable discussion. PAST MEDICAL HISTORY, SOCIAL HISTORY, FAMILY HISTORY: Reviewed from the past records, the patient's consultation from 08/03/2017 and were noted unchanged since that consultation. Please refer to that consultation. PAST SURGICAL HISTORY: Known with history of: 1. ORIF of the hip fracture. 2. Left carotid endarterectomy. MEDICATIONS: The current medications administered for the patient were noted as use of Coumadin, vitamin D, Lipitor, Cardizem CD, loratadine, Protonix, Flonase, metoprolol tartrate, DuoNeb, and other medications. DRUG ALLERGY HISTORY: Noted as no known drug allergies. PHYSICAL EXAMINATION: GENERAL: This is a 76-year-old white female. Currently, the patient is resting in the bed without any acute distress at this time of assessment. The patient is noted awake and alert. She has been getting oxygen supplementation with nasal cannula. Height is 5 feet 4 inches, weight 127 pounds, BMI 21.8. VITAL SIGNS: Normal temperature. Respiratory rate 18-20 Heart rate of 73-92; noted as 131 beats per minute, atrial fibrillation and flutter on admission. Electrocardiogram was reviewed. Blood pressure ranges between 121/75-113/50. Pulse oxygen saturation was noted as 93% saturation on 4 liters nasal cannula this morning of the assessment. [place], [place] REPORT OF CONSULTATION NAME: CHESTER FARNSWORTH UNIT #: [id number] ROOM: [facility] DOCTOR: FARRUKH CALVIN MDM BIRTHDATE: [birth year] HEENT: Head is atraumatic. Eyes, nonicterus. NECK: Supple. Oral mucosa was noted as moist. CARDIOVASCULAR: S1, S2 was audible. LUNGS: Noted with absent breath sounds mostly on the right side and mid portion of the left chest as well. ABDOMEN: Soft without any tenderness. Bowel sounds present. EXTREMITIES: Noted with 1-2+ pitting edema of the lower extremities. VISIBLE SKIN: Noted with mild redness of the skin, without any lesions or rashes. CENTRAL NERVOUS SYSTEM: No apparent gross focal neurologic deficit. The patient is moving the upper and lower extremities. MUSCULOSKELETAL: Noted without any deformities. RADIOLOGY DATA: Reviewed for this admission. Bilateral pleural fluid noted, small to moderate on the left side and small right-sided pleural fluid, no presentation of new finding as compared with the previous chest x-ray. Changes of pulmonary venous congestion were also noted. Chest x-ray that was done 2 views for the patient shows marked increase in the pleural fluid is noted on the right side, which was moderate to large at this time resulting in atelectasis of the right middle and right lower lobe. Pleural fluid was noted moderate size on the left side. The V/Q scan was also done yesterday, ordered by primary care attending, described as indeterminate possibility of pulmonary embolism. LABORATORY DATA: CBC on 09/05/2017 on admission was essentially noted grossly normal. CMP on admission: BUN 23, creatinine 1.63, glucose 150, potassium 2.9. ProBNP noted 8241. PT/INR noted 5.3 on admission, PTT 44 at that time. Troponin, which was done on the fifth cycle 3 times noted all normal. INR on 09/06/2017 was 4.1. BMP that was noted today with BUN 20, creatinine 1.26, glucose 162. PT/INR was noted 3.0, which is therapeutic. CBC: WBC count 11.9, remaining CBC was noted with normal hemoglobin and hematocrit, platelet count mildly elevated at 554. IMPRESSION: The patient who has been currently admitted to the hospital noted with: 1. Current acute respiratory symptoms, related to congestive heart failure and atrial fibrillation with rapid ventricular response. This would be considered as new onset of congestive heart failure. 2. The patient with Coumadin toxicity noted on admission as well. 3. History of suspected lung malignancy, which has not been treated or managed because of the patient's history of dementia and multiple other illnesses. 4. The patient with other medical illnesses as noted from admission, remains unchanged without any evidence of acute exacerbation of chronic obstructive pulmonary disease. 5. Acute kidney injury, most likely related to prerenal azotemia and congestive heart failure. PLAN OF MANAGEMENT: The intravenous fluids have been discontinued, they remain discontinued. The patient has been started on Lasix 40 mg IV daily with potassium supplementation with close monitoring of electrolytes, BUN and creatinine being started tomorrow. Repeat chest x-ray in a couple of days. [place], [place] REPORT OF CONSULTATION NAME: CHESTER FARNSWORTH UNIT #: [id number] ROOM: 512 DOCTOR: KLEBER RODRIGUEZ MD,[facility] BIRTHDATE: [birth year] Continue Coumadin at the present time. Discussion with the family members has been done for potential thoracentesis for the patient if the fluid remains persistent and does not resolve with current conservative treatment. Consent will be given by the daughter for this patient if that needs to be done absolutely necessary. Titrate oxygen to maintain pulse ox 92% or greater. Continue other supportive therapy plan of management. Clinically, I do not have any suspicion of pulmonary embolus. The patient would not pursue any further additional testing, including CT of the chest. There were no signs of active infection or pneumonia as well. Overall prognosis remains guarded. The patient should have a cardiology consultation obtained for further assessment of cardiac function and to optimize the management of congestive heart failure. Atrial fibrillation with rapid ventricular response, noted on admission, currently is noted in control range. Continue anticoagulation to maintain INR in therapeutic range. Thank you for allowing me to participate in the care of this patient. SHRUTHI SHAHID MD CM:CONSTR:REPORT OF CONSULTATION 1447 09/27/17 1000 interface
--- NOTE | ~2017-09-05 | CON ---
[place], [place] REPORT OF CONSULTATION NAME: CHESTER FARNSWORTH UNIT #: [id number] ROOM: 512 DOCTOR: RYLAND CARTERANGEL BIRTHDATE: [birth year] DOS: 09/14/2017 HISTORY OF PRESENT ILLNESS: A 76-year-old female, apparently admitted with significant shortness of breath. The patient has dementia, most of the information is obtained from the chart. The patient also has no history of lung cancer. She has significant pleural effusion, underwent thoracentesis. The patient's echocardiogram showed an ejection fraction of 25%. Most of the information as mentioned is obtained from the chart. She denies any chest discomfort, appears to be comfortable after thoracentesis. REVIEW OF SYSTEMS: Could not be completed because of the patient's inability to follow commands and confusion. PAST MEDICAL HISTORY: Significant for carotid endarterectomy, hip fracture, history of lung cancer, hypertension, dyslipidemia, coronary artery disease, cardiomyopathy, chronic respiratory failure, hypertension. SOCIAL HISTORY: Nonsmoker now, but she is a former smoker. FAMILY HISTORY: Positive for coronary artery disease. ALLERGIES: None. HOME MEDICATIONS: Include hydrocodone, ipratropium, metoprolol, potassium, simvastatin, and Coumadin. PHYSICAL EXAMINATION: GENERAL: She is much more comfortable at this time without any acute distress after thoracentesis. She was getting diuretics, which were discontinued by the ship erector because of elevated BUN and creatinine. VITAL SIGNS: Blood pressure is 100/60. HEENT: Unremarkable. NECK: Supple, elevated JVD. LUNGS: Diminished breath sounds. HEART: Sounds are regular. NEUROLOGICAL: Confused. LABORATORY DATA: White count 12.9, hemoglobin and hematocrit normal, platelet count is 476,000. BUN 22, creatinine is 1.4 with improvement of kidney function. Blood culture is normal. INR 1.4 after administration of vitamin K, was subtherapeutic because of the thoracentesis. Echocardiogram showed ejection fraction 25-30%, global hypokinesis of left ventricle, mild mitral regurgitation, and [id number] tricuspid regurgitation with pulmonary hypertension. IMPRESSION: 1. Severe cardiomyopathy. 2. Dehydration. 3. Atrial fibrillation. 4. Chronic coronary artery disease. [place], [place] REPORT OF CONSULTATION NAME: CHESTER FARNSWORTH UNIT #: [id number] ROOM: 512 DOCTOR: ANGEL MARCELINO MD BIRTHDATE: [birth year] 5. Dementia. 6. Pleural effusion. RECOMMENDATIONS: Resume Coumadin, status post thoracentesis. Unable to start GOLDY inhibitor because of renal insufficiency. Continue beta blockers, lipid-lowering agents, diuretics. Consideration should be given if it is okay with the ship erector to start an ARB with a small dose like losartan 25 mg and we will follow up. ANGEL MARCELINO MD CM:CONSTR:REPORT OF CONSULTATION 9 09/14/17 0846 interface
--- NOTE | ~2017-09-05 | PR ---
[place], [place] PROGRESS NOTE NAME: [facility]STER [facility]NSWORTH [id number] UNIT #: [id number] ROOM: 512 DOCTOR: KLEBER RODRIGUEZ MD,SHRUTHI BIRTHDATE: [birth year] DOS: 09/11/2017 PULMONARY PROGRESS NOTE SUBJECTIVE: She has been noted comfortable without any acute distress at this time. She has been continued on diuretic therapy, which was ordered for this patient. She has not been noted with any symptoms of acute shortness of breath or distress at this time. The edema of the extremities was noted gradually decreased. She has not been reported with any ongoing acute or any other complaints at this time. She has been noted with dementia, unable to give any history by herself. OBJECTIVE: VITAL SIGNS: Showed normal temperature, respiratory rate 18, heart rate of 119-130 with atrial fibrillation, blood pressure 116/50-99/54. Pulse oxygen saturation on 3 liters nasal cannula 94% saturation. HEENT: Head was atraumatic. Eyes nonicterus. NECK: Supple. CARDIOVASCULAR: S1, S2 audible. LUNGS: Noted absent breath sounds noted in the mid portion of the right lung. Decreased breath sounds on the left lower lung was noted as well. ABDOMEN: Soft, nontender. Bowel sounds present. EXTREMITIES: Noted without any acute edema. VISIBLE SKIN: No lesions or rashes. CENTRAL NERVOUS SYSTEM: No apparent focal deficit. LABORATORY DATA: INR today was noted 3.2. CBC on 09/11/2017; WBC count 13.7, hemoglobin and hematocrit normal, platelet count was noted as elevated 524. The INR was noted 3.2. CMP this morning; BUN 23, creatinine 1.56. Chest x-ray was noted with reduction in finding of congestive heart failure; however, the large right and moderate left pleural fluid was still noted. IMPRESSION: 1. The patient with congestive heart failure, bilateral pleural fluid, atrial fibrillation, currently noted with rapid ventricular response. 2. The patient with acute on chronic kidney disease, secondary to diuretic, intravascular volume depletion, prerenal azotemia. PLAN OF MANAGEMENT: Continue current conservative plan for the patient. Discussion with the family member will be done for the patient if agreed for the thoracentesis, certainly could be done on Wednesday. The anticoagulation will be discontinued if the thoracentesis agreed upon by the family members. Otherwise, continue conservative treatment of the patient. Monitor respiratory status. Overall, prognosis remains guarded. Continue to maximize management of atrial fibrillation with rapid ventricular response as well. [place], [place] PROGRESS NOTE NAME: CHESTER FARNSWORTH UNIT #: [id number] ROOM: 512 DOCTOR: SHRUTHI CALVIN MD BIRTHDATE: [birth year] SHRUTHI SHAHID MD CM:PNTRANS 10 [id number] SHRUTHI RODRIGUEZ MD 09/12/17 0728 interface
--- NOTE | ~2017-09-05 | EKG ---
[place], [place] ELECTROCARDIOGRAM REPORT NAME: CHESTER FARNSWORTH UNIT #: [id number] ROOM: DOCTOR: SARAH DRAFT REPORT BIRTHDATE: [birth year] [facility] Test Date: 2017-09-05 Test Time: 08:33:44 Pat Name: CHESTER FARNSWORTH Department: Room: Gender: F Software Engineer Sales: : 1940 Requested By: GAYE DUEÑAS Order Number: [id number] Reading MD: Measurements Intervals [place] Rate: 108 P: [place]: QRS: 30 QRSD: 96 T: 238 QT: 390 QTc: 523 Interpretive Statements Atrial fibrillation Low voltage, extremity leads Anteroseptal infarct, old Repol abnrm suggests ischemia, diffuse leads Prolonged QT interval No previous ECG available for comparison CM:EKGRPT:ELECTROCARDIOGRAM REPORT 0833 0536 GAYE SMITH DRAFT REPORT GAYE DUEÑAS MD
--- NOTE | ~2017-09-05 | EKG ---
[place], [place] ELECTROCARDIOGRAM REPORT NAME: CHESTER FARNSWORTH UNIT #: [id number] ROOM: 512 DOCTOR: SARAH DRAFT REPORT BIRTHDATE: [birth year] [facility] Test Date: 2017-09-05 Test Time: 15:10:08 Pat Name: CHESTER FARNSWORTH Department: Room: Gender: F Security Technician: : 1940 Requested By: GAYE DUEÑAS Order Number: [id number] Reading MD: Measurements Intervals [place] Rate: 97 P: [place]: QRS: 28 QRSD: 95 T: 261 QT: 379 QTc: 482 Interpretive Statements Atrial flutter Low voltage, extremity leads Repol abnrm suggests ischemia, diffuse leads Prolonged QT interval No previous ECG available for comparison CM:EKGRPT:ELECTROCARDIOGRAM REPORT 1510 1212 GAYE SMITH DRAFT REPORT GAYE DUEÑAS MD
--- NOTE | ~2017-09-05 | PR ---
[place], [place] PROGRESS NOTE NAME: CHESTER FARNSWORTH UNIT #: [id number] ROOM: 512 DOCTOR: KLBEER RODRIGUEZ MD,SHRUTHI BIRTHDATE: [birth year] DOS: 09/10/2017 SUBJECTIVE: The patient was noted without any acute distress at this time. The patient denies symptoms of chest pain or any hemoptysis. The patient denies symptoms of nausea. Shortness of breath was noted partially decreased. She has been started on diuretic therapy yesterday. She has ____ Ruiz catheter since the exact output cannot be recorded. The patient has been noted with history of dementia, unable to give me much symptom review for the review of systems; however, the patient was noted comfortably resting at this time on the bed. OBJECTIVE: VITAL SIGNS: Normal temperature, respiratory rate 20, heart rate 95, blood pressure 92/58. The pulse oxygen saturation on 4 liters 98% saturation. HEENT: Examination shows head was atraumatic. Eyes nonicterus. NECK: Supple. CARDIOVASCULAR: S1, S2 audible. LUNGS: The patient was noted without any wheezing or crackles at present time. Breaths are noted decreased in the lungs bilaterally. ABDOMEN: Soft, nontender. EXTREMITIES: Does show improvement in the edema of the lower extremity. IMPRESSION: 1. Bilateral pleural fluid, acute congestive heart failure. At this time, treated with diuretics. 2. The patient with elevation of BUN and creatinine. The patient has acute kidney injury as well. PLAN OF TREATMENT: Monitor labs. The patient to continue diuretics. Continue other supportive therapy, plan and management as previously. Usual care, other supportive plan of treatment therapy and plan of care. SHRUTHI SHAHID MD CM:PNTRANS [id number] SHRUTHI RODRIGEUZ MD 09/11/17 0010 interface
--- NOTE | ~2017-09-05 | PR ---
[place], [place] PROGRESS NOTE NAME: CHESTER FARNSWORTH [facility] #: [id number] UNIT #: [id number] ROOM: 512 DOCTOR: KLEBER RODRIGUEZ MD,SHRUTHI BIRTHDATE: [birth year] DOS: 09/13/2017 SUBJECTIVE: The patient was noted comfortable at this time without any acute distress. She has been previously received diuretics, which were discontinued because of elevation of BUN and creatinine. She was planned for thoracentesis to be done today to the patient, most likely bilateral thoracentesis. She has not been reported any symptoms of nausea, vomiting or diarrhea. There were no symptoms of pain. Denies symptoms of headache. She has been noted dementia, this current history was not noted reliable. OBJECTIVE: VITAL SIGNS: For the patient, which has been recorded showed the temperature noted normal, respiratory rate 18, heart rate 94, blood pressure of 99/59. Pulse oxygen saturation of the patient recorded 2 liters 96% saturation. HEENT: Examination shows head was atraumatic. Eyes nonicterus. NECK: Supple. CARDIOVASCULAR: S1, S2 is audible. LUNGS: The patient noted absent breath sounds on the right side and in the left lower lung. ABDOMEN: Soft, nontender. Bowel sounds present. EXTREMITIES: Without any acute edema. VISIBLE SKIN: No lesions or rashes. CENTRAL NERVOUS SYSTEM: No focal deficit. MUSCULOSKELETAL: No deformities. LABORATORY DATA: CBC today, WBC count 12.9, hemoglobin and hematocrit were normal. The platelet count was 478,000, elevated. BMP this morning, BUN 22, creatinine 1.47 with improvement in kidney function noted from yesterday. CO2 33. Blood culture from the showed no bacterial growth as final results. IMPRESSION: The INR was noted 1.4 after the administration of the vitamin K. The INR noted subtherapeutic. PLAN: Proceed with the thoracentesis. The right-sided thoracentesis will be done as the left side pleural fluid was noted only minimal. The consent was discussed with the patient and obtained for the patient's daughter who is power of commonwealth attorney of this patient. The patient does have dementia. After thoracentesis, additional changes in treatment necessary will be recommended accordingly. In the meantime, continue this plan of management, therapy, plan of care and plan of management and usual care. [place], [place] PROGRESS NOTE NAME: CHESTER FARNSWORTH UNIT #: [id number] ROOM: 512 DOCTOR: SHRUTHI CALVIN MD BIRTHDATE: [birth year] SHRUTHI SHAHID MD CM:JAZIEL [id number] SHRUTHI RODRIGUEZ MD 09/13/17 1545 interface
--- NOTE | ~2017-09-05 | PR ---
[place], [place] PROGRESS NOTE NAME: CHESTER FARNSWORTH UNIT #: [id number] ROOM: 512 DOCTOR: ELVA MARCOS DO BIRTHDATE: [birth year] DOS: 09/11/2017 The previous progress notes have been reviewed. The patient denies any dyspnea. No acute issues reported overnight. PHYSICAL EXAMINATION: VITAL SIGNS: Blood pressure is 116/58, pulse is 130, respirations 18, temperature is 98 degrees Fahrenheit. GENERAL APPERANCE: A 76-year-old female, awake, alert, no apparent distress. HEAD AND NECK: JVD is noted. LUNGS: Diminished at her bases. HEART: Regular, without an S3 or rub. ABDOMEN: Soft, positive bowel sounds x 4. +2 flank edema is noted, unchanged from the past. LABORATORY DATA: From today, WBCs are 13.7, hemoglobin of 12.2, hematocrit 43.1, platelets 124,000. Sodium 143, potassium 3.9, chloride 106, CO2 is 27, BUN 23, creatinine 1.56, glucose 157, calcium is 8.3, albumin of 2.8, corrected calcium is 9.3. Renal ultrasound on the day 09/10/2017 shows symmetric kidneys, right measuring 9.8, left measuring 9.7 cm in size. No hydronephrosis is appreciated. The bladder itself was noted to be distended. This was not a postvoid residual; however. ASSESSMENT: 1. Acute kidney injury versus chronic kidney disease. As noted baseline ____, fluctuated in the past. Volume status remains increased. Output has not been recorded due to incontinence and as such unclear how well she is diuresing, her electrolytes are satisfactory. 2. Hypertension. Blood pressure is under satisfactory control. 3. Congestive heart failure, being diuresed. RECOMMENDATIONS: Continue to diurese the patient. We will follow electrolytes closely. We will check a bladder scan for postvoid residual. Further plans pending above. [place], [place] PROGRESS NOTE NAME: CHESTER FARNSWORTH UNIT #: [id number] ROOM: 512 DOCTOR: PRITI ELVA BIRTHDATE: [birth year] ELVA MARCOS DO CM:JAZIEL [id number] ELVA MARCOS DO 09/12/17 1503 interface
--- NOTE | ~2017-09-05 | PR ---
[place], [place] PROGRESS NOTE NAME: CHESTER FARNSWORTH UNIT #: [id number] ROOM: 512 DOCTOR: PRITI ELVA LUO BIRTHDATE: [birth year] DOS: 09/12/2017 RENAL PROGRESS NOTE SUBJECTIVE: There were no reported issues with the patient overnight or during the course today. Her history again remains unreliable due to dementia as obtained by reviewing current and past notes and discussion with the nursing staff. There is a tentative plan for thoracentesis tomorrow for pleural effusions. She reportedly is eating well. PHYSICAL EXAMINATION: VITAL SIGNS: Blood pressure is 100/50, pulse is 87, respiratory rate is 18, temperature is 97.7 degrees Fahrenheit. GENERAL APPEARANCE: A 76-year-old female, awake and alert. HEAD AND NECK: No JVD is noted. LUNGS: Diminished at each lung base. HEART: Regular without S3 or rub. ABDOMEN: Soft, positive bowel sounds x 4. EXTREMITIES: No clubbing, cyanosis. There is +2 flank edema noted that is unchanged. LABORATORY DATA: From today, sodium is 143, potassium 3.1, chloride 104, CO2 of 30, BUN 23, creatinine 1.7. Glucose is 263, calcium is 8.1, albumin of 2.8, corrected calcium is 9.1, total protein 6.0, ALT is 30, AST is 16, alkaline phosphatase is 159, total bilirubin 0.5. ASSESSMENT AND PLAN: 1. Acute kidney injury versus chronic kidney disease. Creatinine has fluctuated in the past. Overall serum creatinine is slightly increased, but renal function is relatively stable. Volume status remains increased. Unfortunately, again it is unclear how adequately she is diuresing as she has been incontinent and intake and output have not been followed on a consistent basis. 2. Pleural effusion/congestive heart failure. She is being diuresed. Plan for a thoracentesis tomorrow. 3. Hypertension. Blood pressure is under satisfactory control. RECOMMENDATIONS: Await thoracentesis. Continue diuresis. Monitor renal function and follow electrolytes closely. Potassium was noted to be low today, has been supplemented. Thank you for allowing us to participate in the care of the patient. [place], [place] PROGRESS NOTE NAME: CHESTER FARNSWORTH UNIT #: [id number] ROOM: 512 DOCTOR: ELVA MARCOS DO BIRTHDATE: [birth year] ELVA MARCOS DO CM:PNTRANS 1514 [id number] ELVA MARCOS DO 09/23/17 0810 interface
--- NOTE | ~2017-09-05 | PR ---
[place], [place] PROGRESS NOTE NAME: CHESTER FARNSWORTH UNIT #: [id number] ROOM: 512 DOCTOR: ANAMARIA BARRETO DO BIRTHDATE: [birth year] DOS: 09/14/2017 SUBJECTIVE: The patient was evaluated today. She is comfortable and notes no pain, nausea, vomiting or shortness of breath. She has no complaints at this time. Right-sided thoracentesis was performed yesterday with 1700 mL of fluid removed. OBJECTIVE: VITAL SIGNS: Temperature 97.7, heart rate 62, respirations 20, blood pressure 92/52, pulse ox 93% on 3 liters nasal cannula. HEENT: Head is atraumatic. Eyes nonicteric. NECK: Supple. No lymphadenopathy. CARDIOVASCULAR: S1 and S2 audible. LUNGS: Slightly diminished at the bases. No wheezing, rales or rhonchi noted. ABDOMEN: Soft, nontender. Bowel sounds present throughout. EXTREMITIES: Trace edema bilaterally. SKIN: Visible skin, no lesions or rashes. MUSCULOSKELETAL: No acute deformities. CENTRAL NERVOUS SYSTEM: The patient with dementia. NEUROLOGIC: Cranial nerves grossly intact. LABORATORY DATA: No CBC today. BMP today, sodium 140, potassium 3.2, chloride 103, CO2 of 32, BUN 23, creatinine 1.24, glucose 130, albumin 2.6. Gram stain of pleural fluid shows moderate white blood cells with no microorganisms. Preliminary culture on the pleural fluid shows no bacterial growth. Pleural effusion is transudative. Blood culture showed no growth. IMPRESSION: 1. Acute kidney injury noted with hyperkalemia related to diuretics. This has resolved since stopping the diuretics. 2. Bilateral pleural fluid secondary to congestive heart failure. 3. Atrial fibrillation. INR today 1.1. Coumadin has been resumed. 4. Hypokalemia. PLAN OF TREATMENT: The patient had pleurocentesis yesterday. Imaging shows resolution of right-sided pleural effusion. Left-sided pleural effusion remains minimal. No treatment needed for left-sided pleural effusion at this time. Continue to refrain from diuretic use. Replace electrolytes as needed. Coumadin has been resumed. The patient may be discharged from a pulmonary standpoint. Anamaria Barreto DO [place], [place] PROGRESS NOTE NAME: CHESTER FARNSWORTH UNIT #: [id number] ROOM: 512 DOCTOR: ANAMARIA BARRETO DO BIRTHDATE: [birth year] SHRUTHI SHAHID MD CM:PNPRATEEK [id number] ANAMARIA BARRETO DO 09/14/[id number] interface
--- NOTE | ~2017-09-05 | PR ---
[place], [place] PROGRESS NOTE NAME: CHESTER FARNSWORTH UNIT #: [id number] ROOM: 512 DOCTOR: SHRUTHI CALVIN MD BIRTHDATE: [birth year] DOS: 09/12/2017 SUBJECTIVE: The patient has been noted comfortable at this time without any acute distress, resting in the bed without any acute chest pain or other symptoms. She has been noted with history of dementia and cannot give me a good review of system. OBJECTIVE: VITAL SIGNS: Showed normal temperature, respiratory rate 22, heart rate 87-117, blood pressure 110/54-100/50. Pulse oxygen saturation 3 liters 96% saturation. Intake and output cannot be accurately monitored, especially output because of the patient has diapers and incontinence of the urine. HEENT: Examination noted, no acute distress. NECK: Supple. CARDIOVASCULAR: S1, S2 audible. LUNGS: Decreased breaths in both middle and lower portion of the lungs more in the right than the left side. ABDOMEN: Soft, nontender. Bowel sounds present. EXTREMITIES: Without any acute edema. LABORATORY DATA: BMP today, BUN 20, creatinine 1.70. Potassium 3.1. IMPRESSION: 1. Acute kidney injury noted with hyperkalemia related to diuretics. 2. Bilateral pleural fluid secondary to congestive heart failure. 3. Acute fibrillation, currently noted with a good response. 4. The patient's anticoagulation was noted with previous therapeutic INR as well. 5. Persistent bilateral pleural fluid, not responsive patient to the diuretics. PLAN OF TREATMENT: Discontinuation of the Coumadin as the case was discussed with patient's daughter, the patient thoracentesis which was agreed upon. The diuretic at this time will be discontinued because of the elevation of BUN and creatinine. Potassium supplementation will be given for patient. Thoracentesis was planned to be done tomorrow morning. The patient will be given oral vitamin K 2.5 mg one dose to reverse the INR to subtherapeutic level for thoracentesis to be done tomorrow. [place], [place] PROGRESS NOTE NAME: CHESTER FARNSWORTH UNIT #: [id number] ROOM: 512 DOCTOR: SHRUTHI CALVIN MD BIRTHDATE: [birth year] SHRUTHI SHAHID MD CM:PNPRATEEK [id number] SHRUTHI RODRIGUEZ MD 09/27/17 1001 interface
[~2017-09-05 07:59] MED LIST changes: +FLONASE ALLERG9.9 ML NAS; +HYDROCODONE-AC1 EAC1 PO
[2017-09-05 08:07] VITALS: BP 124/66
[2017-09-05] MEDS ORDERED: HYDROCODONE-AC1 EAC1 PO (08:26)
[2017-09-05 08:32] LABS: BASO % 0.3 % (0.0-1.0); EOS # 0.1 10*3/uL (0.0-0.4); EOS % 1.2 % (1.0-4.0); HEMATOCRIT 40.3 % (37.0-47.0); HEMOGLOBIN 12.1 g/dl (12.0-16.0); LYMPH # 0.9 10*3/uL (1.3-4.4); LYMPH % 9.6 % (27.0-41.0); MEAN CELL VOLUME 93.3 fl (81.0-99.0); MEAN PLATELET VOLUME 9.7 fl (9.6-12.3); MONO # 1.1 10*3/uL (0.1-1.0); MONO % 11.7 % (3.0-9.0); NEUT # 7.2 10*3/uL (2.3-7.9); NEUT % 76.2 % (47.0-73.0); PLATELET COUNT AUTOMATED 334 10*3/uL (130-400); RED BLOOD COUNT 4.32 10*6/uL (4.10-5.10); RED CELL DISTRI WIDTH 16.4 % (0-14.5); WHITE BLOOD COUNT 9.5 10*3/uL (4.8-10.8)
[2017-09-05] MEDS ORDERED: LASIX20 MG PO (08:49)
[2017-09-05] MEDS ORDERED: POTASSIUM CHLO10 MEQ PO (08:49)
[2017-09-05 08:52] LABS: ALBUMIN 2.7 gm/dl (3.1-4.5); CREATININE 1.63 mg/dL (0.55-1.02); POTASSIUM 2.9 mmol/L (3.5-5.1); TOTAL PROTEIN 6.2 gm/dL (6.4-8.2); TROPONIN I 0.024 ng/ml (<0.045)
[2017-09-05 08:57] LABS: ACT PARTIAL THROMBO TIME 44.1 SECONDS (20.8-31.5)
[2017-09-05 08:58] LABS: INTERNATIONAL NORM RATIO 5.3 (2.0-3.5)
[2017-09-05 10:10] VITALS: BP 99/80
[2017-09-05 12:00] VITALS: BP 102/76
[2017-09-05 16:00] VITALS: BP 104/70
[2017-09-05 20:00] VITALS: BP 106/80
[2017-09-06] VITALS: BP 108/54
[2017-09-06 06:49] LABS: CREATININE 1.54 mg/dL (0.55-1.02)
[2017-09-06 06:53] LABS: INTERNATIONAL NORM RATIO 4.1 (2.0-3.5)
[2017-09-06 08:00] VITALS: BP 114/59
[2017-09-06 12:00] VITALS: BP 124/56
[2017-09-06 16:00] VITALS: BP 101/62
[2017-09-06 20:00] VITALS: BP 118/72
[2017-09-07] VITALS: BP 103/61
[2017-09-07 07:17] LABS: INTERNATIONAL NORM RATIO 3.2 (2.0-3.5)
[2017-09-07 07:22] LABS: CREATININE 1.41 mg/dL (0.55-1.02); POTASSIUM 4.8 mmol/L (3.5-5.1)
[2017-09-07 08:00] VITALS: BP 121/67
[2017-09-07 12:00] VITALS: BP 105/81
[2017-09-07 16:00] VITALS: BP 113/90
[2017-09-07 20:00] VITALS: BP 111/76
[2017-09-08] VITALS: BP 94/52
[2017-09-08 06:49] LABS: HEMATOCRIT 43.9 % (37.0-47.0); HEMOGLOBIN 12.9 g/dl (12.0-16.0); MEAN CELL VOLUME 94.4 fl (81.0-99.0); MEAN CORPUSCULAR HGB 27.7 pg (27.0-31.0); MEAN CORPUSCULAR HGB CONC 29.4 g/dl (33.0-37.0); MEAN PLATELET VOLUME 9.7 fl (9.6-12.3); NUCLEATED RED BLOOD CELL 0.1 10*3/uL (0.0-0.0); NUCLEATED RED BLOOD CELL 0.5 % (0.0-0.0); PLATELET COUNT AUTOMATED 461 10*3/uL (130-400); RED BLOOD COUNT 4.65 10*6/uL (4.10-5.10); RED CELL DISTRI WIDTH 16.4 % (0-14.5); WHITE BLOOD COUNT 12.5 10*3/uL (4.8-10.8)
[2017-09-08 07:00] LABS: CREATININE 1.32 mg/dL (0.55-1.02); POTASSIUM 4.9 mmol/L (3.5-5.1)
[2017-09-08 07:02] LABS: INTERNATIONAL NORM RATIO 2.8 (2.0-3.5)
[2017-09-08 07:08] LABS: BURR CELLS FEW; PLATELET SUFFICIENCY HIGH (NORMAL); POLYCHROMASIA SLIGHT; TOTAL CELLS COUNTED 100 #CELLS
[2017-09-08 08:00] VITALS: BP 95/50
[2017-09-08 10:08] VITALS: BP 106/50
[2017-09-08 12:00] VITALS: BP 93/52
[2017-09-08 16:00] VITALS: BP 100/49
[2017-09-08 16:43] LABS: BILIRUBIN 1+ (NEGATIVE); BLOOD TRACE-INTACT (NEGATIVE); COLOR YELLOW (YELLOW); GLUCOSE TRACE (NEGATIVE); KETONE NEGATIVE (NEGATIVE); LEUKO ESTERASE NEGATIVE (NEGATIVE); NITRITE NEGATIVE (NEGATIVE); PH 5.5 (5.0-9.0); SPECIFIC GRAVITY >= 1.030 (1.005-1.030); UROBILINOGEN 0.2 E.U./dl (0.2-1.0)
[2017-09-08 17:14] LABS: BACTERIA 1+; CLARITY SL CLOUDY (CLEAR)
[2017-09-08 20:00] VITALS: BP 113/50
[2017-09-09] VITALS: BP 105/50
[2017-09-09 07:07] LABS: BASO # 0.1 10*3/uL (0.0-0.1); BASO % 0.5 % (0.0-1.0); EOS % 0.3 % (1.0-4.0); HEMATOCRIT 46.2 % (37.0-47.0); HEMOGLOBIN 13.3 g/dl (12.0-16.0); LYMPH % 8.2 % (27.0-41.0); MEAN CELL VOLUME 94.7 fl (81.0-99.0); MEAN CORPUSCULAR HGB 27.3 pg (27.0-31.0); MEAN CORPUSCULAR HGB CONC 28.8 g/dl (33.0-37.0); MEAN PLATELET VOLUME 9.5 fl (9.6-12.3); MONO # 1.2 10*3/uL (0.1-1.0); MONO % 10.1 % (3.0-9.0); NEUT # 9.4 10*3/uL (2.3-7.9); NEUT % 79.4 % (47.0-73.0); NUCLEATED RED BLOOD CELL 0.1 10*3/uL (0.0-0.0); NUCLEATED RED BLOOD CELL 0.5 % (0.0-0.0); PLATELET COUNT AUTOMATED 554 10*3/uL (130-400); RED BLOOD COUNT 4.88 10*6/uL (4.10-5.10); RED CELL DISTRI WIDTH 16.4 % (0-14.5); WHITE BLOOD COUNT 11.9 10*3/uL (4.8-10.8)
[2017-09-09 07:24] LABS: CREATININE 1.26 mg/dL (0.55-1.02); POTASSIUM 4.4 mmol/L (3.5-5.1)
[2017-09-09 08:00] VITALS: BP 114/50
[2017-09-09 12:00] VITALS: BP 121/75
[2017-09-09 16:00] VITALS: BP 125/51
[2017-09-09 20:00] VITALS: BP 109/63
[2017-09-10] VITALS: BP 92/58
[2017-09-10 07:54] LABS: INTERNATIONAL NORM RATIO 4.2 (2.0-3.5)
[2017-09-10 08:00] VITALS: BP 117/53
[2017-09-10 08:04] LABS: ALBUMIN 2.7 gm/dl (3.1-4.5); CREATININE 1.55 mg/dL (0.55-1.02); POTASSIUM 4.3 mmol/L (3.5-5.1); TOTAL PROTEIN 6.2 gm/dL (6.4-8.2)
[2017-09-10 12:00] VITALS: BP 100/52
[2017-09-10 16:00] VITALS: BP 104/68
[2017-09-10 20:00] VITALS: BP 94/71
[2017-09-11] VITALS: BP 104/72; BP 94/54
[2017-09-11 08:00] VITALS: BP 110/68
[2017-09-11 09:48] LABS: BASO # 0.1 10*3/uL (0.0-0.1); BASO % 0.5 % (0.0-1.0); EOS % 0.2 % (1.0-4.0); HEMATOCRIT 43.1 % (37.0-47.0); HEMOGLOBIN 12.7 g/dl (12.0-16.0); LYMPH % 7.5 % (27.0-41.0); MEAN CELL VOLUME 91.9 fl (81.0-99.0); MEAN CORPUSCULAR HGB 27.1 pg (27.0-31.0); MEAN CORPUSCULAR HGB CONC 29.5 g/dl (33.0-37.0); MEAN PLATELET VOLUME 9.3 fl (9.6-12.3); MONO # 1.5 10*3/uL (0.1-1.0); MONO % 10.9 % (3.0-9.0); NEUT # 10.9 10*3/uL (2.3-7.9); NEUT % 79.5 % (47.0-73.0); NUCLEATED RED BLOOD CELL 0.3 % (0.0-0.0); PLATELET COUNT AUTOMATED 524 10*3/uL (130-400); RED BLOOD COUNT 4.69 10*6/uL (4.10-5.10); RED CELL DISTRI WIDTH 16.6 % (0-14.5); WHITE BLOOD COUNT 13.7 10*3/uL (4.8-10.8)
[2017-09-11 10:15] LABS: ALBUMIN 2.8 gm/dl (3.1-4.5); CREATININE 1.56 mg/dL (0.55-1.02); POTASSIUM 3.9 mmol/L (3.5-5.1); TOTAL PROTEIN 6.4 gm/dL (6.4-8.2)
[2017-09-11 10:25] LABS: INTERNATIONAL NORM RATIO 3.2 (2.0-3.5)
[2017-09-11 12:00] VITALS: BP 116/58
[2017-09-11 16:00] VITALS: BP 100/60
[2017-09-11 20:00] VITALS: BP 94/54
[2017-09-12] VITALS: BP 103/61
[2017-09-12 08:00] VITALS: BP 110/54
[2017-09-12 11:36] LABS: ALBUMIN 2.8 gm/dl (3.1-4.5); CREATININE 1.7 mg/dL (0.55-1.02); POTASSIUM 3.1 mmol/L (3.5-5.1)
[2017-09-12 12:00] VITALS: BP 100/50
[2017-09-12 12:00] LABS: INTERNATIONAL NORM RATIO 2.9 (2.0-3.5)
[2017-09-12 16:00] VITALS: BP 108/59
[2017-09-12 20:00] VITALS: BP 105/68
[2017-09-13] VITALS: BP 99/59
[2017-09-13 06:24] LABS: BASO # 0.1 10*3/uL (0.0-0.1); BASO % 0.4 % (0.0-1.0); EOS # 0.1 10*3/uL (0.0-0.4); EOS % 0.4 % (1.0-4.0); LYMPH # 1.1 10*3/uL (1.3-4.4); LYMPH % 8.8 % (27.0-41.0); MEAN CORPUSCULAR HGB 26.8 pg (27.0-31.0); MEAN CORPUSCULAR HGB CONC 28.6 g/dl (33.0-37.0); MEAN PLATELET VOLUME 9.8 fl (9.6-12.3); MONO # 1.4 10*3/uL (0.1-1.0); MONO % 10.8 % (3.0-9.0); NEUT # 10.1 10*3/uL (2.3-7.9); NEUT % 78.4 % (47.0-73.0); NUCLEATED RED BLOOD CELL 0.2 % (0.0-0.0); PLATELET COUNT AUTOMATED 478 10*3/uL (130-400); RED BLOOD COUNT 4.47 10*6/uL (4.10-5.10); RED CELL DISTRI WIDTH 16.6 % (0-14.5); WHITE BLOOD COUNT 12.9 10*3/uL (4.8-10.8)
[2017-09-13 06:57] LABS: CREATININE 1.47 mg/dL (0.55-1.02)
[2017-09-13 07:00] LABS: INTERNATIONAL NORM RATIO 1.4 (2.0-3.5)
[2017-09-13 08:00] VITALS: BP 105/75
[2017-09-13 09:31] LABS: BODY FLUID WBC 372 /uL
[2017-09-13 10:31] LABS: BF LYMPHOCYTES 30 %; BF MACROPHAGES 37 %; BF MONOCYTES 1 %; BF NEUTROPHILS 32 %
[2017-09-13 12:00] VITALS: BP 129/77
[2017-09-13 16:00] VITALS: BP 97/50
[2017-09-13 20:00] VITALS: BP 110/58
[2017-09-13 23:41] VITALS: BP 92/60
[2017-09-14 08:00] VITALS: BP 92/52
[2017-09-14 09:18] LABS: ALBUMIN 2.6 gm/dl (3.1-4.5); CREATININE 1.24 mg/dL (0.55-1.02); POTASSIUM 3.2 mmol/L (3.5-5.1); TOTAL PROTEIN 6.3 gm/dL (6.4-8.2)
[2017-09-14 09:19] LABS: INTERNATIONAL NORM RATIO 1.1 (2.0-3.5)
[2017-09-14 12:00] VITALS: BP 90/51
[2017-09-14] MEDS ORDERED: COUMADIN1 M1 PO (14:07)
[2017-09-14] MEDS ORDERED: HYDROCODONE-AC1 EAC1 PO (14:07)
[2017-09-14 16:00] VITALS: BP 92/57
== END 2017-09-14 19:45 | disposition other institution (70) | DRG 682 ==
LOC: ED 07:59 → EDHOLD 09:03 → 5E 09:03 → EDHOLD 09:07 → 5E 09:28
PROVIDERS: Emergency Medicine; Family Medicine; Internal Medicine; Internal Medicine Critical Care Medicine
PROC: 0W993ZZ Drainage of Right Pleural Cavity, Percutaneous Approach (ICD-10-PCS; principal; 2017-09-13)
DX: N17.0 Acute kidney failure with tubular necrosis (principal); I26.99 Other pulmonary embolism without acute cor pulmonale; I50.33 Acute on chronic diastolic (congestive) heart failure; J90 Pleural effusion, not elsewhere classified; I75.023 Atheroembolism of bilateral lower extremities; J96.10 Chronic respiratory failure, unspecified whether with hypoxia or hypercapnia; I95.9 Hypotension, unspecified; D68.59 Other primary thrombophilia; I82.491 Acute embolism and thrombosis of other specified deep vein of right lower extremity; I13.0 Hypertensive heart and chronic kidney disease with heart failure and stage 1 through stage 4 chronic kidney disease, or unspecified chronic kidney disease; E44.1 Mild protein-calorie malnutrition; I42.9 Cardiomyopathy, unspecified; N18.4 Chronic kidney disease, stage 4 (severe); Z66 Do not resuscitate; E11.65 Type 2 diabetes mellitus with hyperglycemia; E11.22 Type 2 diabetes mellitus with diabetic chronic kidney disease; R00.0 Tachycardia, unspecified; G89.29 Other chronic pain; E86.0 Dehydration; E11.40 Type 2 diabetes mellitus with diabetic neuropathy, unspecified; E87.5 Hyperkalemia; D72.810 Lymphocytopenia; I70.90 Unspecified atherosclerosis; I48.2 Chronic atrial fibrillation; I73.00 Raynaud's syndrome without gangrene; F03.90 Unspecified dementia, unspecified severity, without behavioral disturbance, psychotic disturbance, mood disturbance, and anxiety; I25.10 Atherosclerotic heart disease of native coronary artery without angina pectoris; F32.9 Major depressive disorder, single episode, unspecified; J44.9 Chronic obstructive pulmonary disease, unspecified; E87.6 Hypokalemia; Z86.73 Personal history of transient ischemic attack (TIA), and cerebral infarction without residual deficits; Z87.01 Personal history of pneumonia (recurrent); Z79.01 Long term (current) use of anticoagulants; Z79.899 Other long term (current) drug therapy; I25.2 Old myocardial infarction; Z99.81 Dependence on supplemental oxygen; Z79.84 Long term (current) use of oral hypoglycemic drugs; Z95.5 Presence of coronary angioplasty implant and graft; Z80.1 Family history of malignant neoplasm of trachea, bronchus and lung; Z82.49 Family history of ischemic heart disease and other diseases of the circulatory system; Z68.21 Body mass index [BMI] 21.0-21.9, adult